=== PATIENT | female | born 1955 | race Caucasian/White ===

== ENCOUNTER 2024-03-16 08:52 | Outpatient (CLI) | payer OTHER, SELFPAY ==
--- NOTE | ~2024-03-16 | DEXA_ITS ---
Bone Density Report Name: MARIBELL BEDOLLA Age: 68 Sex: Female Ethnicity: White Date of : 1955 Indication: postmenopausal; screening for osteoporosis; height loss; cancer; hysterectomy; Referring Provider: AHMET, ESTEPHANIA Jeffrey Study: Bone densitometry was performed. Exam Date: March 16, 2024 Accession number: [id number] Bone Density: Region BMD T-score Z-score Classification AP Spine(L1-L4) 1.139 0.8 2.7 Normal Femoral Neck (Left) 0.609 -2.2 -0.6 Osteopenia Total Hip (Left) 0.737 -1.7 -0.4 Osteopenia Femoral Neck (Right) 0.543 -2.8 -1.2 Osteoporosis Total Hip (Right) 0.666 -2.3 -1.0 Osteopenia Total Hip Mean 0.701 -2.0 -0.7 Osteopenia World Health Organization criteria for BMD impression classify patients as: Normal (T-score at or above -1.0), Osteopenia (T-score between -1.0 and -2.5), or Osteoporosis (T-score at or below -2.5). 10-year Fracture Risk: FRAX not reported because: Some T-score for Spine Total or Hip Total or Femoral Neck at or below -2.5 Treated for osteoporosis Clinical Information Provided by Patient: Is being treated for osteoporosis Has used the following medications: Vitamin D, Calcium Has the following medical conditions: Cancer, Hysterectomy Patient maximum height was 66.0 Drinks caffeinated beverages Onset of menses at age 13 Number of children 2 Impression: The patient has osteoporosis, based on the Right Femoral Neck T-score. Discussion: It is important to ask patients whether they are taking their medications and to encourage continued and appropriate compliance with their osteoporosis therapies to reduce fracture risk. It is also important to review their risk factors and encourage appropriate calcium and vitamin D intakes, exercise, fall prevention and other lifestyle measures. Follow-Up: Consider a repeat BMD and Vertebral Fracture Assessment (VFA) exam in 2 years or sooner if medically necessary, to reassess this patient's status. Reported by: RICHA on 03/16/2024 9:40:00 AM. Reviewed, dictated and finalized at location A. DENIZ
== END 2024-03-16 08:53 | disposition home or self-care (01) ==
LOC: ANHIMG 08:58
PROVIDERS: PCP Nurse Practitioner; Visit Provider Nurse Practitioner
DX: M81.0 Age-related osteoporosis without current pathological fracture (principal); M85.852 Other specified disorders of bone density and structure, left thigh; M85.851 Other specified disorders of bone density and structure, right thigh
CPT/HCPCS: 77080

== ENCOUNTER 2024-03-17 12:29 | Outpatient (CLI) | payer OTHER, SELFPAY ==
--- NOTE | ~2024-03-17 | MM_ITS ---
EXAMINATION: MM diagnostic amparo LT w gabriella HISTORY: Previous benign left breast biopsy TECHNIQUE: Additional 3-D tomosynthesis images of the left breast were performed and synthetic 2-D im ages were generated. CAD analysis was submitted and interpreted. COMPARISON: 05/2024 BREAST PARENCHYMAL COMPOSITION: Not dense: There are scattered areas of fibroglandular density. FINDINGS: Stable architectural distortion and surgical change in the upper outer quadrant of the left breast posteriorly. No new masses, calcifications or architectural distortion in the left breast to suggest malignancy. IMPRESSION: 1. No mammographic evidence for malignancy in the left breast. 2. Routine yearly screening mammogram and regular clinical breast examination are recommended. BI-RADS Category 2: Benign finding(s). Reviewed, dictated and finalized at location B. IMPRESSION: 1. No mammographic evidence for malignancy in the left breast. 2. Routine yearly screening mammogram and regular clinical breast examination a re recommended. BI-RADS Category 2: Benign finding(s).
== END 2024-03-17 12:30 | disposition home or self-care (01) ==
PROVIDERS: PCP Nurse Practitioner; Visit Provider Nurse Practitioner
DX: R92.8 Other abnormal and inconclusive findings on diagnostic imaging of breast (principal)
CPT/HCPCS: 77061; 77065; G0279

== ENCOUNTER 2024-08-28 08:47 | Outpatient (CLI) | payer OTHER, SELFPAY ==
--- OUTSIDE RECORDS SUMMARY | 2024-08-28 09:08 | XMS_ITS | Referral Summary ---
Author Organization [address] Address [address] [place] [id number] Care Team Providers Care Business Office Director Name Role Phone Jhoana Christianson NP Primary Care Provider [phone] Allergies Active Allergy Reactions Criticality Noted Date Comments Sulfa (Sulfonamide Antibiotics) Vomiting Low 12/2020 Medications aspirin 81 mg enteric coated tablet TAKE 1 TABLET BY MOUTH TWICE A DAY FOR 30 DAYS FOR CLOT PREVENTION 1 Active calcitonin (MIACALCIN) 200 unit/actuation nasal spray Administer 1 spray into affected nostril(s) daily 6 Active calcium carbonate-vitami n D3 (CALTRATE 600 + D) 1500 mg (600 mg elemental) -400 units per tablet Take 1 tablet by mouth daily 9 Active cholecalciferol (VITAMIN D-3) 74427 unit capsule Take 1,000 Int'l Units by mouth daily 1 Active Trulicity 1.5 mg/0.5 mL pen injector 1 Active glipiZIDE XL (GLUCOTROL XL) 10 mg 24 hr tablet 1 Active isosorbide mononitrate ER (IMDUR) 30 mg 24 hr tablet 1 Active losartan (COZAAR) 100 mg tablet 1 Active metFORMIN (GLUCOPHAGE) 1,000 mg tablet Take 1,000 mg by mouth 2 times daily 6 Active naproxen sodium 220 mg capsule Take 220 mg by mouth 2 (two) times a day 1 Active rosuvastatin (CRESTOR) 10 mg tablet 1 Active Active Problems Problem Noted Date Diagnosed Date Obstructive sleep apnea 03/09/2021 Assessment & Plan (03/09/2021 9:55 AM CDT): Patient continue to wear CPAP at 10 cm water pressure while sleeping. Her DME is [facility]. I did inform the patient that if she would like we can complete a nocturnal polysomnogram split night protocol with no MSLT due to the weight loss. The patient states she would like to hold off at this time. PLMD (periodic limb movement disorder) Assessment & Plan (03/09/2021 9:56 AM CDT): The patient denies that her limbs are moving at night when she sleeps. Social History Tobacco Use Types Packs/Day Years Used Date Smoking Tobacco: Never Smokeless Tobacco: Never AUDIT-C Answer Date Recorded Q1: How often do you have a drink containing alc ohol? Never 03/09/2021 Average Number of Drinks Not on file 021 Q3: How often do you have si x or more drinks on one occasion? 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 Gender Identity Not on file Sexual Orientation Not on file Last Filed Vital Signs Vital Sign Reading Time Taken Comments Blood Pressure 116/70 03/09/2021 9:36 AM CDT Pulse 70 03/09/2021 9:36 AM CDT Temperature 36.6 C (97.8 F) 03/09/2021 9:36 AM CDT Respiratory Rate 18 03/09/2021 9:36 AM CDT Oxygen Saturation 99% 03/09/2021 9:36 AM CDT Inhaled Oxygen Concentration - - Weight 86.2 kg (190 lb) 03/09/2021 9:36 AM CDT Height 160 cm (5' 3 ) 03/09/2021 9:36 AM CDT Body Mass Index 33.66 03/09/2021 9:36 AM CDT Plan of Treatment Not on file Insurance [facility] PPO Care Teams Business Office Director Relationship Specialty Start Date End Date Jhoana Christianson NP [address] [place] [address] [place] [address] PCP - General 02/11/20
--- OUTSIDE RECORDS SUMMARY | 2024-08-28 09:08 | XMS_ITS | Clinical Summary ---
Author Organization [address] Address [address] [place] [id number] Care Team Providers Care Adolescent Medicine Specialist Name Role Phone Jhoana Christianson NP Primary Care Provider [phone] Allergies Active Allergy Reactions Criticality Noted Date [...] mouth daily 9 Active cholecalciferol (VITAMIN D-3) 24630 unit capsule Take 1,000 Int'l Units by [...] 1 Active rosuvastatin (CRESTOR) 10 mg tablet Active Active Problems Problem Noted Date Diagnosed [...] are moving at night when she sleeps. 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
--- OUTSIDE RECORDS SUMMARY | 2024-08-28 09:08 | XMS_ITS | Clinical Summary ---
Author Organization [facility] [place] Address [address] [place] [address] Phone Care Team Providers Care Instrument Technician Helper Name Role Phone Samara Tejada Primary Care Provider [phone] Allergies Active Allergy Reactions Criticality Noted Date Comments Adhesive Tape-Silicones Rash,Itching Medium 08/24/2015 Benzoin Compound Itching,Rash Medium 08/24/2015 Steri strips Sulfa (Sulfonamide Antibiotics) Nausea and Vomiting Low 08/16/2015 Unclassified Drug Rash,Itching Medium 08/24/2015 Steri strips Medications metFORMIN (GLUCOPHAGE) 1,000 mg tablet Take 1,000 mg by mouth 2 times daily. 1 Active losartan (COZAAR) 100 mg tablet Take 100 mg by mouth daily. 1 Active glipiZIDE (GLUCOTROL XL) 10 mg Extended Release 24 hour tablet Take 10 mg by mouth daily. 1 Active dulaglutide (Trulicity) 1.5 mg/0.5 mL injection Inject 1.5 mg by subcutaneous injection. 1 Active calcitonin, Parsons, (FORTICAL) 200 unit/actuation Moore, Non-Aerosol Administer 1 Moore in each nostril daily. 1 Active rosuvastatin (CRESTOR) 10 mg tablet Take 10 mg by mouth. 1 Active naproxen sodium (ALEVE) 220 mg Capsule Take 220 mg by mouth. 1 Active isosorbide mononitrate (IMDUR) 30 mg Extended Release 24 hour tablet Take 15 mg by mouth daily. 1 Active calcium carbonate + vitamin D (CALTRATE+D) 600 mg-10 mcg (400 unit) Tablet Take 1 Tablet by mouth daily. 9 Active aspirin (ECOTRIN EC) 81 mg Tablet, Delayed Release (E.C.) Take 81 mg by mouth daily. 1 Active albuterol sulfate 90 mcg/Actuation inhaler Take 2 Puffs by inhalation every 6 hours as needed. 2 Active Active Problems Patient Care Coordination No te Formatting of this note migh t be different from the original. 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 Rose Cerrato Surgeon: Dr. Roxanne Rubio Radiation oncologist: Dr. Yissel Ricardo Primary care physician: Dr. 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 TNM: Tmi N0 M0, stage I Stage: 0 [] I [x] II [] III [] IV ER: Negative PA: Negative [id number]: Positive Oncotype results if performed: Surgery: [x] Yes [] No Surgery date: 08/23 and 09/08/15 Surgical procedures/location/findings: 08/23 left lumpectomy. 09/08/15 left axillary sentinel lymph node biopsy. Lymph nodes removed: [x] Yes, 0/4 [] No Systemic therapy (chemotherapy): [] Yes [x] No Names of therapy used: Number of cycles and end date: Clinical trial: [] Yes [x] [place] of trial: Drugs given and date completed: Echo/Muga done prior to treatment: [] Yes [x] No If yes, Ejection fraction: Radiation: [x] Yes [] No Body area treated: Left breast. Patient received 5040 cGy in 28 fractions to the left breast through medial and lateral portal arrangements utilizing 6mv photons and forward planning IMRT technique. A boost was then delivered to the left surgical incision at 1400 cy in 7 fractions utilizing 15mv photons. End date: 10/11/15-11/18/15. Persistent symptoms or side effects at completion of treatment: [] Yes (enter types): [x] No Need for ongoing (adjuvant) treatment for cancer: Yes [x] No[] Additional treatment name: Tamoxifen Plan duration: 5 years. Patient started tamoxifen but stopped it due to intolerance. Patient to just be followed closely. She will follow with Dr Rubio her surgeon. Possible side effects: Myalgias [] Arthralgias [] Hot flashes/night sweats [x] Increased bone loss [] vaginal dryness [] slight increased risk of DVT [x] Slight increased risk of uterine cancer [x] FAMILIAL CANCER RISK ASSESSMENT Genetic/hereditary risk factors or predisposing conditions: none Genetic counseling: [] Yes [x] No Genetic testing results: SCHEDULE OF CLINIC VISITS,CANCER SURVEILLANCE, AND OTHER RECOMMENDED RELATED TESTS (Coordinating Provider,who,what, when, and how often) Coordinating provider MEDICAL ONCOLOGIST every 3-6 mos for the first 3 years and then Every 6-12 mos years 4 and 5. Then yearly. *Physical exam/lab work every 3-6 months the first 3 years and then every 6 months year 09/05 and then yearly. If no radiation therapy, mammogram yearly, if high risk consider alternating mammograms/breast MRI every 6 months. A baseline bone density study should be performed on all postmenopausal women prior to starting Arimidex/Femara/or Aromasin. It should be repeated every 1-to 2 years as directed by your physician. Other testing as indicated. RADIATION ONCOLOGIST 4-6 weeks after treatment then every 3-6 mos for the first 3 years and then every 6-12 mos for year 4 and 5. *Physical exam and other tests as indicated on each visit SURGEON every 6 mos for the first year and then yearly. *Physical exam and other tests as indicated on each visit PRIMARY CARE PHYSICIAN continue your yearly visit *Physical exam and other tests as indicated on each visit TAILORING TEACHER continue your yearly visit. If you are on tamoxifen you have a greater chance of developing uterine cancer. You should report any abnormal vaginal bleeding to your doctor. *Physical exam and other tests (Pap test) as indicated on each visit. Please continue to see your primary care physician/TAILORING TEACHER for all general health care recommended for a female your age. Possible late and/or half-way effects that someone with this type of cancer and treatment may experience: [] neuropathy [x] lymphedema [] Fatigue [] osteoporosis [] Menopausal symptoms [x] lung disease [x] breast pain [] Sexual dysfunction [x] heart disease [] leukemia Cancer survivors may experience issues with the areas listed below. If you have any concerns in these or other areas please speak with your doctors or nurses to find out how you can get help with them. [] Emotional and mental health [] Physical functioning [] Memory or concentration loss [] Fatigue [] Insurance issues [] Parenting [] Spiritual issues [] Weight changes [] School/work [] Fertility [] Stopping smoking [] Financial advice or assistance [] Sexual functioning [] Other A number of lifestyle/behaviors can affect one's ongoing health, including the risk for the cancer coming back or developing another cancer. Discuss these recommendations with your doctor and nurses. [x] Tobacco use/cessation [x] Alcohol use [x] Weight management (loss/gain) [x] Diet [x] Calcium and vitamin D [x] Regular daily weight bearing exercise [x] Sunscreen use [x] Vaccines [x] Lung cancer screening [x] Routine dental care [x] Breast cancer screening [x] Breast self exam [x] Well woman exam [x] Colonoscopy [x] Monitoring of blood pressure, cholesterol, and blood glucose CALL YOUR DOCTOR RECOMMENDATIONS For anything that represents a brand-new symptom, a persistent symptom, or anything that you are worried about that might be related to your cancer coming back. OTHER COMMENTS REFERRALS [] Star [] [facility] [] [facility] at the [facility] [x] Other (Specify): 1. Interested in weight loss and exercise. Will contact the [facility] for information on the Live [employer] program. Alternative Energy Engineer in cancer information center if interested in the future. ADDITIONAL RESOURCES Patients may have many questions and concerns after their cancer treatment ends. A list of local resources as provided below to assist you. [facility] cancer [facility]: [place] [employer] Society (ACS): www.acs.org National Cancer [place] (NCI): www.cancer.gov [place] Society of clinical oncology (ASCO): www.cancer.net K[employer]: www.Jiuxian.com.Protecode Livestrong: www.ColorPlaza Radiation therapy: www.rtanswers.org Patient signature: DIE BAKER signature: Date delivered on: 05/08/2016 60 minutes of time were spent with the patient and over 50% of time was spent in counseling, discussing her issues, chief complaints, diet, exercise, prevention, supplements, etc. or in the coordination of care. Immunizations Immunization Administration Dates Next Due Influenza Seasonal Unspecified Formulation IM Family History Medical History Relation Name Comments Diabetes Brother 2 Stroke Father Diabetes Mother Diabetes Sister 3 x2 Relation Name Status Comments Brother 1 Alive Brother 2 Father Mother Sister 1 Alive Sister 2 Alive Sister 3 Social History Tobacco Use Types Packs/Day Years Used Date Smoking Tobacco: Former Cigarettes Q uit: 09/07/1978 Smokeless Tobacco: Never Alcohol Use Standard Drinks/Week Comments No 0 (1 standard drink = 0.6 oz pur e alcohol) Comments No Sex and Gender Information Value Date Recorded Sex Assigned at Not on file Legal Sex Female 3:34 PM BACKING IN MACHINE TENDER Gender Identity Not on file Sexual Orientation Not on file Last Filed Vital Signs Vital Sign Reading Time Taken Comments Blood Pressure 120/60 06/13/2021 9:47 AM BACKING IN MACHINE TENDER Pulse 70 05/12/2019 1:50 PM BACKING IN MACHINE TENDER Temperature 36.7 C (98.1 F) 05/08/2016 11:13 AM BACKING IN MACHINE TENDER Respiratory Rate 16 05/08/2016 11:13 AM BACKING IN MACHINE TENDER Oxygen Saturation 93% 09/08/2015 11:50 AM CDT Inhaled Oxygen Concentration - - Weight 87.5 kg (193 lb) 06/13/2021 9:47 AM BACKING IN MACHINE TENDER Height 160 cm (5' 3 ) 06/13/2021 9:47 AM BACKING IN MACHINE TENDER Body Mass Index 34.19 06/13/2021 9:47 AM BACKING IN MACHINE TENDER Plan of Treatment Health Maintenance Due Date Last Done Comments DIABETES ANNUAL FOOT EXAM 12/05/1975 DIABETES ANNUAL RETINAL EXAM 12/05/1975 DIABETES MICROALBUMIN ANNUAL SCREEN 12/05/1975 LDL CHOLESTEROL ANNUAL 12/05/1975 COLORECTAL SCREENING 2002 Colorectal Cancer Screening 2002 FIT-DNA Q 3 years 2002 FIT/FOBT Q 1 year 2002 Flex Sig/CT Colonography Q 5 years 2002 PNEUMOCOCCAL VACCINE 50+ YEA RS (2 of 2 - PCV) 09/04/2018 09/04/2017 DIABETES HBA1C Q 6 MONTHS 09/27/2018 03/29/2018 BREAST CANCER SCREENING 06/13/2022 06/13/19 22, 05/17/2020, 05/12/2019, Additional history exists OSTEOPOROSIS SCREENING 2022 INFLUENZA VACCINE (#1) 2024 03/25/2015 DTAP/TDAP/TD VACCINES (2 - T d or Tdap) 01/01/2029 01/01/2019 RSV VACCINE (60+ or ) (1 - 1-dose 75+ series) 2032 ZOSTER VACCINE Completed 12/02/2017, 09/04/2017 Procedures Procedure Name Priority Date/Time Associated Diagnosis Comments MAMMO 3D LUDMILA DIAGNOSTIC BILAT W OR WO CAD Routine 06/13/2021 9:21 AM BACKING IN MACHINE TENDER 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 RECOMMENDATIONS: Bilateral annual routine mammogram. LEFT BREAST OVERALL FINAL ASSESSMENT: BI-RADS CATEGORY 2 - Benign findings. RIGHT BREAST OVERALL FINAL ASSESSMENT: BI-RADS CATEGORY 1 - Negative. DICTATION LOCATION: [facility] 06/13/2021 9:55 AM BACKING IN MACHINE TENDER BILATERAL DIAGNOSTIC DIGITAL MAMMOGRAM WITH 3D TOMOSYNTHESIS AND CAD DATE: 06/13/2021 HISTORY: Left breast cancer and left lumpectomy. Annual checkup. TECHNIQUE: Low-dose full-field digital tomosynthesis of bilateral breasts was performed with 2-D and 3-D acquisition. Computer aided diagnosis was also applied. COMPARISON: 05/17/2020 and 05/12/2019. FINDINGS: There are scattered fibroglandular tissues bilaterally. The postsurgical scar in the upper outer quadrant of the left breast is again seen, unchanged. Benign calcifications are visualized in the left breast. No new mass, malignant calcification or architectural distortion is identified. CAD was used. Procedure Note Dora Card MD - 06/13/2021 BILATERAL DIAGNOSTIC DIGITAL MAMMOGRAM WITH 3D TOMOSYNTHESIS AND CAD DATE: 06/13/2021 HISTORY: Left breast cancer and left lumpectomy. Annual checkup. TECHNIQUE: Low-dose full-field digital tomosynthesis of bilateral breasts was performed with 2-D and 3-D acquisition. Computer aided diagnosis was also applied. COMPARISON: 05/17/2020 and 05/12/2019. FINDINGS: There are scattered fibroglandular tissues bilaterally. The postsurgical scar in the upper outer quadrant of the left breast is again seen, unchanged. Benign calcifications are visualized in the left breast. No new mass, malignant calcification or architectural distortion is identified. CAD was used. IMPRESSION: No evidence of malignancy. RECOMMENDATIONS: Bilateral annual routine mammogram. LEFT BREAST OVERALL FINAL ASSESSMENT: BI-RADS CATEGORY 2 - Benign findings. RIGHT BREAST OVERALL FINAL ASSESSMENT: BI-RADS CATEGORY 1 - Negative. DICTATION LOCATION: [facility] Machado MD MAMMO ORDERABLES Final R esult from Last 3 Months or Most Recently Relevant to Health Maintenance Insurance [employer] Advance Directives For more information, please contact: [phone] * Full Code (Latest Code Status on File) Date Activated Date Inactivated Comments 09/08/2015 7:53 AM 09/08/2015 4:30 PM * Full Code Date Activated Date Inactivated Comments 09/08/2015 7:24 AM 09/08/2015 7:53 AM * Full Code Date Activated Date Inactivated Comments 08/24/2015 12:25 PM 08/24/2015 4:22 PM * Full Code Date Activated Date Inactivated Comments 08/24/2015 10:42 AM 08/24/2015 12:25 PM Care Teams Instrument Technician Helper Relationship Specialty Start Date End Date Samara Tejada DO [address] [place] [address] [place] [id number] PCP - General Family Practice 08/16/15
--- OUTSIDE RECORDS SUMMARY | 2024-08-28 09:08 | XMS_ITS | Clinical Summary ---
Author Organization [facility] Address [address] [place] [address] Care Team Providers Care Rehab Consultant Name Role Phone Terrell Samarazulema Charlton DO Primary Care Provider [phone] Roxanne Rubio MD Unavailable [phone] Source Comments [facility],non-owned Affiliates and Associated Physician Practices is amultiple site organization consisting of ambulatory clinics and hospital sitesin [place], [place], [place] and [place]. This disclosure is being madepursuant to the Care Everywhere program and may not contain all information available regarding this patient. Last updated 18.[facility] [employer] Social History Tobacco Use Types Packs/Day Years Used Date Smoking Tobacco: Never Assessed Sex and Gender Information Value Date Recorded Sex Assigned at Not on file Gender Identity Not on file Sexual Orientation Not on file Plan of Treatment Health Maintenance Due Date Last Done Comments BONE DENSITY TESTING 1957 COLOGUARD (AGES 45-75) - COL ON CA SCREENING 1957 COLON MONITORING 1957 COLONOSCOPY - COLON CA SCREENING 1957 CT COLONOGRAPHY - COLON CA SCREENING 1957 Colorectal Cancer Screening 1957 FIT - COLON CA SCREENING 1957 FLEX SIG - COLON CA SCREENING 1957 LIPID TESTING 1957 HEPATITIS C SCREENING 11/30/1975 DTAP/TDAP/TD VACCINES (1 - Tdap) 1976 PNEUMOCOCCAL VACCINE 50+ (1 of 1 - PCV) 12/05/2007 ZOSTER VACCINE (1 of 2) 12/05/2007 MAMMOGRAM 05/12/2021 05/12/2019 COVID-19 VACCINE (2023-2 5 season) 2024 INFLUENZA VACCINE (#1) 2024 03/25/2015 DEPRESSION SCREENING 06/03/2024 Respiratory Syncytial Virus (RSV) Vaccine Pt: or over 60 yrs (1 - 1-dose 75+ series) 2032 HEPATITIS B VACCINE Aged Out No longe r eligible based on patient's age to complete this topic HIB VACCINE Aged Out No longer eligi ble based on patient's age to complete this topic HPV VACCINE Aged Out No longer eligi ble based on patient's age to complete this topic MENINGOCOCCAL (Group B) VACC INE SHARED DECISION-MAKING Aged Out No longer eligibl e based on patient's age to complete this topic MENINGOCOCCAL GROUPS A/C/Y/W VACCINE Aged Out No longer eligible b ased on patient's age to complete this topic Care Teams Rehab Consultant Relationship Specialty Start Date End Date Samara Tejada DO PCP - General Family Medicine 02/26/20 Roxanne Rubio MD [address] [place] [address] Surgical Oncologist General Surgery 02/26/20
[2024-08-28 09:29] LABS: Basophils Absolute Auto 0.1 K/mm3 (0.0-0.1); Basophils Percent Auto 1.2 % (0.2-1.2); Eosinophils Absolute Auto 0.1 K/mm3 (0-0.3); Eosinophils Percent Auto 2.5 % (0-4.4); Hematocrit 45.7 % (37.0-47.0); Hemoglobin 15.3 g/dL (12.0-15.0); Immature Granulocyte Absolute 0.02 K/mm3 (0.00-0.031); Immature Granulocyte Percent A 0.4 % (0-0.5); Lymphocytes Absolute Auto 0.81 K/mm3 (0.9-3.2); Lymphocytes Percent Auto 16.8 % (18.3-44.2); Mean Corpuscular HGB Conc 33.5 g/dl (32-36); Mean Corpuscular Hemoglobin 29.1 pg (26-34); Mean Corpuscular Volume 86.9 fl (80-100); Mean Platelet Volume 10.9 fl (7.4-10.4); Monocytes Absolute Auto 0.4 K/mm3 (0.1-0.6); Monocytes Percent Auto 8.9 % (2.6-8.5); Neutrophils Absolute Auto 3.4 K/mm3 (1.3-6.7); Neutrophils Percent Auto 70.2 % (45.5-73.1); Platelet Count Result 211 k/mm3 (150-375); Red Blood Count 5.26 M/mm3 (4.2-5.4); Red Cell Distribution Width 13.3 % (11.5-14.5); White Blood Count 4.8 K/mm3 (4.5-10.0)
[2024-08-28 09:40] LABS: Alanine Aminotransferase 33 U/L (6-35); Albumin Level 4.3 g/dL (3.5-5.1); Alkaline Phosphatase 55 U/L (38-126); Anion Gap 10 mmol/L (4-12); Aspartate Amino Transferase 33 U/L (14-36); Bilirubin,Total 0.9 mg/dL (0.2-1.3); Blood Urea Nitrogen 16 mg/dL (7-17); Calcium 9.2 mg/dL (8.4-10.2); Carbon Dioxide 24 mmol/L (22-30); Chloride 103 mmol/L (98-107); Cholesterol 137 mg/dL (0-200); Estimated Glomerular Filt Rate > 60; Glucose 132 mg/dL (65-110); HDL Direct 67 mg/dL; Sodium 137 mmol/L (137-145); Triglycerides 67 mg/dL (<150)
[2024-08-28 09:51] LABS: LDL Cholesterol Direct 47 mg/dL
[2024-08-28 09:59] LABS: Vitamin D 25 Hydroxy 57.4 ng/mL
[2024-08-28 10:02] LABS: Hemoglobin A1C 8.2 % (<5.7)
== END 2024-08-28 08:48 | disposition home or self-care (01) ==
LOC: ANHLAB 08:51
PROVIDERS: PCP Nurse Practitioner; Visit Provider Nurse Practitioner
DX: E11.21 Type 2 diabetes mellitus with diabetic nephropathy (principal); E55.9 Vitamin D deficiency, unspecified; E78.2 Mixed hyperlipidemia; I10 Essential (primary) hypertension
CPT/HCPCS: 36415; 80053; 80061; 82306; 83036; 84443; 85025

== ENCOUNTER 2024-11-26 08:46 | Outpatient (CLI) | payer OTHER, SELFPAY ==
[2024-11-26 10:36] LABS: Hemoglobin A1C 7.7 % (<5.7)
== END 2024-11-26 08:47 | disposition home or self-care (01) ==
PROVIDERS: PCP Nurse Practitioner; Visit Provider Nurse Practitioner
DX: E11.65 Type 2 diabetes mellitus with hyperglycemia (principal)
CPT/HCPCS: 36415; 83036

== ENCOUNTER 2024-11-28 09:42 | Emergency (ER) | payer OTHER, SELFPAY ==
[2024-11-28 09:52] VITALS: BP 139/70; PULSE 74; RESP 16; TEMP 36.3; O2SAT 99
--- NOTE | 2024-11-28 12:43 | ED.GENADULT ---
HPI - General Adult General Chief complaint: Skin/Abscess/Foreign Body Stated complaint: Possible Wound on Back Time Seen by Provider: 11/28/24 12:05 History of Present Illness HPI narrative: 68-year-old female presenting with a painful bump on her back. Patient has a history of clots patient says. No other symptoms. Related Data Allergies Allergy/AdvReac Type Severity Reaction Status Date / Time Sulfa (Sulfonamide AdvReac Nausea and Verified 11/28/24 09:55 Antibiotics) Vomiting Exam Narrative: APPEARANCE: No apparent distress. Head: atraumatic. EYES: EOMI, NOSE: Atraumatic NECK: Trachea midline RESPIRATORY: No increased rate of breathing CARDIOVASCULAR: RRR, ABDOMINAL: Non-distended MUSCULOSKELETAl: No obvious deformities NEURO: Alert. Moving 4/4 extremities SKIN:: Sebaceous cyst over the upper middle back. No surrounding cellulitis. Tender to palpation. Fluctuant. PSYCHIATRIC: Normal affect Course Vital Signs Vital signs: Vital Signs Temperature 97.4 F L 11/28/24 09:52 Pulse Rate 74 11/28/24 09:52 Respiratory Rate 16 11/28/24 09:52 Blood Pressure 139/70 11/28/24 09:52 Pulse Oximetry 99 11/28/24 09:52 Temperature 97.4 F L 11/28/24 09:52 Pulse Rate 74 11/28/24 09:52 Respiratory Rate 16 11/28/24 09:52 Blood Pressure 139/70 11/28/24 09:52 Pulse Oximetry 99 11/28/24 09:52 Procedures Abscess I/D back: Date of Incision: 11/28/24 Local Anesthetic: bupivacaine 0.25% Amount of anesthesia used (mL): 5 Technique: incised with #11 blade Amount of fluid expressed (mL): 6 Irrigation: Yes Packing used?: none I&D Results: Pus and Blood Medical Decision Making MDM Narrative Medical decision making narrative: -Course: 68-year-old female presenting with a painful sebaceous cyst on her back. Is incised and drained with return of sebaceous material, pus and some blood. No surrounding cellulitis. Antibiotic sinus started. Patient discharged primary care follow-up. Given return precautions Vital Signs Vital Signs: Vital Signs Temperature 97.4 F L 11/28/24 09:52 Pulse Rate 74 11/28/24 09:52 Respiratory Rate 16 11/28/24 09:52 Blood Pressure 139/70 11/28/24 09:52 Pulse Oximetry 99 11/28/24 09:52 Temperature 97.4 F L 11/28/24 09:52 Pulse Rate 74 11/28/24 09:52 Respiratory Rate 16 11/28/24 09:52 Blood Pressure 139/70 11/28/24 09:52 Pulse Oximetry 99 11/28/24 09:52 Discharge Plan Discharge Clinical Impression: Abscess of skin or subcutaneous tissue Patient Disposition: Home Condition: Stable Instructions: Antibiotic Form, Abscess (ED) Additional Instructions: Please follow-up with your primary care physician. Return if you develop fevers, redness or increased pain. Patient Language: Kinyarwanda Follow-up/Referrals: Sammy,LAVELLE [place] [Primary Care Provider] -
[2024-11-28 13:05] VITALS: BP 135/78; PULSE 80; RESP 20; TEMP 36.6; O2SAT 98
== END 2024-11-28 13:06 | disposition home or self-care (01) ==
PROVIDERS: Emergency Provider Emergency Medicine; PCP Nurse Practitioner
DX: L02.212 Cutaneous abscess of back [any part, except buttock and flank] (principal)
CPT/HCPCS: 10060; 99282

== ENCOUNTER 2024-12-18 00:28 | Day surgery (SDC) | payer OTHER, SELFPAY ==
[2024-12-07 14:01] VITALS: BMI 29.0
--- OUTSIDE RECORDS SUMMARY | 2024-12-18 00:32 | XMS_ITS | Encounter Summary ---
Author Organization [facility] Address [address] [place] [address] Care Team Providers Care Material Mixer Name Role Phone Jhoana Christianson YOSELIN Primary Care Provider Pato Tamez MD Unavailable [phone] Nemesio Javier MD Unavailable [phone] Encounter Details Date Type Department Care Team (Latest Contact Info) Description 12/17/2024 Travel Social History Tobacco Use Types Packs/Day Years Used Date Smoking Tobacco: Never Smokeless Tobacco: Never Comments:Provider to diet counselor Alcohol Use Standard Drinks/Week Comments No 0 (1 standard drink = 0.6 oz pur e alcohol) PHQ-2 Answer Date Recorded Patient Health Questionnaire-2 Score 0 08/26/2024 Comments No Sex and Gender Information Value Date Recorded Sex Assigned at Female 08/26/2024 9:42 AM CDT Legal Sex Female 7:26 PM CDT Gender Identity Not on file Sexual Orientation Not on file Occupation Industry Job Start Date Job End Date Housekeeping Not on file Not on file Not on file documented as of this encounter Functional Status * RETIRED Are you deaf or do you have serious difficulty hearing Answer Date of Assessment Author Status No 09/20/2020 2:25 PM CDT Activ e * RETIRED Are you blind or do you have serious difficulty seeing, even when wearing glasses? Answer Date of Assessment Author Status No 09/20/2020 2:25 PM CDT Activ e * Do you have serious difficulty walking or climbing stairs? Answer Date of Assessment Author Status Yes 09/20/2020 2:25 PM CDT Ginny Jara RN Active * Do you have difficulty dressing or bathing? Answer Date of Assessment Author Status No 09/20/2020 2:25 PM CDT Ginny Jara RN Active * Because of a physical, mental, or emotional condition, do you have difficulty doing errands alone such as visiting a doctor's office or shopping? Answer Date of Assessment Author Status No 09/20/2020 2:25 PM CDT Ginny Jara RN Active documented as of this encounter Mental Status * Because of a physical, mental, or emotional condition, do you have serious difficulty concentrating, remembering, or making decisions? Answer Entry Date Author Status No 09/20/2020 2:25 PM CDT Ginny Jara RN Active documented in this encounter Plan of Treatment Upcoming Encounters Date Type Department Care Team (Late st Contact Info) Description 02/25/2025 8:40 AM CDT Office Visit [facility] [address] [place] [address] Jhoana Christianson FNP [address] [place] [address] 12/23/2025 9:00 AM CDT [facility] [address] [id number] Sobeida Camp, TONG [address] [address] documented as of this encounter Goals Goal Patient Goal Type Associated Problems Recent Progress Patient-Stated? 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
--- OUTSIDE RECORDS SUMMARY | 2024-12-18 00:32 | XMS_ITS | Referral Summary ---
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
--- OUTSIDE RECORDS SUMMARY | 2024-12-18 00:32 | XMS_ITS | Clinical Summary ---
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
--- OUTSIDE RECORDS SUMMARY | 2024-12-18 00:32 | XMS_ITS | Continuity of Care Document ---
Author Organization [employer] Address [address] [facility] [address] [place] [address] Phone Care Team Providers Care Gaming Commissioner Name Role Phone Zack WANG, Caterina ROGERS Unavailable Unavail able Procedures Procedure Date Therapeutic Activities Manual Therapy Therapeutic Exercise Therapeutic Activities Manual Therapy Therapeutic Activities Manual Therapy Neuromuscular Re-Ed Therapeutic Activities Manual Therapy Therapeutic Exercise Therapeutic Activities Manual Therapy Neuromuscular Re-Ed Therapeutic Activities Neuromuscular Re-Ed Manual Therapy Hot or Cold Pack Therapeutic Activities Neuromuscular Re-Ed Manual Therapy Therapeutic Activities Mechanical Traction Neuromuscular Re-Ed Manual Therapy Therapeutic Exercise Progress Note Manual Therapy Hot or Cold Pack Manual Therapy Neuromuscular Re-Ed Therapeutic Activities Hot or Cold Pack Manual Therapy Therapeutic Activities Manual Therapy Therapeutic Activities Therapeutic Activities Manual Therapy Neuromuscular Re-Ed Manual Therapy Neuromuscular Re-Ed Therapeutic Activities Neuromuscular Re-Ed Manual Therapy Therapeutic Activities Manual Therapy Manual Therapy Neuromuscular Re-Ed Therapeutic Activities Therapeutic Activities Neuromuscular Re-Ed Manual Therapy Therapeutic Activities Progress Note Therapeutic Exercise Manual Therapy Neuromuscular Re-Ed Therapeutic Activities Manual Therapy Neuromuscular Re-Ed Therapeutic Activities Neuromuscular Re-Ed Manual Therapy Therapeutic Activities Manual Therapy Neuromuscular Re-Ed Therapeutic Activities Neuromuscular Re-Ed Manual Therapy Hot or Cold Pack Therapeutic Activities Neuromuscular Re-Ed Manual Therapy Therapeutic Activities Neuromuscular Re-Ed Manual Therapy Therapeutic Activities Hot or Cold Pack Manual Therapy PT Evaluation Moderate Complexity Therapeutic Activities Neuromuscular Re-Ed Mechanical Traction Manual Therapy Progress Note Manual Therapy Therapeutic Exercise Neuromuscular Re-Ed Manual Therapy Therapeutic Exercise Therapeutic Activities Neuromuscular Re-Ed Therapeutic Exercise Manual Therapy Therapeutic Exercise Manual Therapy Neuromuscular Re-Ed Therapeutic Activities Therapeutic Exercise Manual Therapy Progress Note Therapeutic Activities Therapeutic Exercise Manual Therapy Neuromuscular Re-Ed Therapeutic Exercise Manual Therapy Therapeutic Activities Neuromuscular Re-Ed Therapeutic Exercise Manual Therapy Therapeutic Activities Therapeutic Exercise Neuromuscular Re-Ed Manual Therapy Neuromuscular Re-Ed Therapeutic Exercise Manual Therapy PT Evaluation Low Complexity Therapeutic Activities Therapeutic Exercise Manual Therapy Neuromuscular Re-Ed Therapeutic Activities Manual Therapy Therapeutic Exercise Therapeutic Activities Therapeutic Exercise Neuromuscular Re-Ed Manual Therapy Neuromuscular Re-Ed Manual Therapy Therapeutic Activities Therapeutic Exercise Manual Therapy Therapeutic Exercise Therapeutic Activities PT Evaluation Moderate Complexity Neuromuscular Re-Ed Therapeutic Activities Therapeutic Exercise Neuromuscular Re-Ed Therapeutic Activities Therapeutic Exercise Neuromuscular Re-Ed Therapeutic Activities Therapeutic Exercise Theratube/band Neuromuscular Re-Ed Manual Therapy Therapeutic Activities Neuromuscular Re-Ed Manual Therapy Neuromuscular Re-Ed Progress Note Therapeutic Exercise Therapeutic Activities Therapeutic Activities Therapeutic Exercise Therapeutic Exercise Manual Therapy Manual Therapy Neuromuscular Re-Ed Neuromuscular Re-Ed Therapeutic Exercise Therapeutic Activities Therapeutic Exercise Manual Therapy Neuromuscular Re-Ed Therapeutic Exercise Therapeutic Activities Neuromuscular Re-Ed Therapeutic Activities Electrical Stimulation Manual Therapy Therapeutic Exercise Therapeutic Activities Manual Therapy Hot or Cold Pack Electrical Stimulation Hot or Cold Pack Therapeutic Activities Manual Therapy Neuromuscular Re-Ed Therapeutic Activities Manual Therapy Therapeutic Exercise Hot or Cold Pack Progress Note Therapeutic Activities Manual Therapy Hot or Cold Pack Therapeutic Exercise Neuromuscular Re-Ed Therapeutic Activities Neuromuscular Re-Ed Therapeutic Exercise Manual Therapy Hot or Cold Pack Manual Therapy Therapeutic Activities Manual Therapy Therapeutic Exercise Hot or Cold Pack Therapeutic Exercise Manual Therapy Therapeutic Activities Neuromuscular Re-Ed Therapeutic Exercise Therapeutic Activities Neuromuscular Re-Ed Hot or Cold Pack Therapeutic Activities Manual Therapy Hot or Cold Pack Neuromuscular Re-Ed Therapeutic Exercise Therapeutic Activities Manual Therapy Neuromuscular Re-Ed Therapeutic Exercise Hot or Cold Pack PT Evaluation High Complexity Therapeutic Exercise Hot or Cold Pack Therapeutic Activities Therapeutic Activities Therapeutic Exercise Manual Therapy Neuromuscular Re-Ed Therapeutic Exercise Manual Therapy Therapeutic Activities Neuromuscular Re-Ed Manual Therapy Therapeutic Activities Therapeutic Exercise Manual Therapy Therapeutic Activities Neuromuscular Re-Ed Therapeutic Exercise Manual Therapy Therapeutic Activities Manual Therapy Neuromuscular Re-Ed Therapeutic Activities Neuromuscular Re-Ed Manual Therapy Neuromuscular Re-Ed Therapeutic Exercise Manual Therapy Therapeutic Activities Neuromuscular Re-Ed Therapeutic Exercise Manual Therapy Therapeutic Activities Neuromuscular Re-Ed Therapeutic Exercise Manual Therapy Progress Note Therapeutic Activities Therapeutic Exercise Neuromuscular Re-Ed Manual Therapy Neuromuscular Re-Ed Therapeutic Exercise Manual Therapy Therapeutic Activities Therapeutic Exercise Neuromuscular Re-Ed Manual Therapy Therapeutic Activities Neuromuscular Re-Ed Therapeutic Exercise Manual Therapy Therapeutic Activities Manual Therapy Therapeutic Exercise Therapeutic Activities Neuromuscular Re-Ed Therapeutic Exercise Therapeutic Activities Therapeutic Exercise Manual Therapy Therapeutic Activities Manual Therapy Therapeutic Activities Neuromuscular Re-Ed Manual Therapy Therapeutic Exercise PT Evaluation Moderate Complexity Therapeutic Activities Therapeutic Exercise Manual Therapy Therapeutic Activities Therapeutic Exercise Manual Therapy Hot or Cold Pack Therapeutic Exercise Manual Therapy Hot or Cold Pack Therapeutic Activities Therapeutic Exercise Manual Therapy Therapeutic Activities Therapeutic Exercise Hot or Cold Pack Manual Therapy Therapeutic Activities Therapeutic Exercise Neuromuscular Re-Ed Manual Therapy Hot or Cold Pack Therapeutic Activities Manual Therapy Hot or Cold Pack Progress Note Therapeutic Activities Manual Therapy Hot or Cold Pack Therapeutic Exercise Therapeutic Activities Manual Therapy Hot or Cold Pack Therapeutic Exercise Therapeutic Activities Manual Therapy Hot or Cold Pack Therapeutic Exercise Manual Therapy Therapeutic Activities Hot or Cold Pack Therapeutic Exercise Manual Therapy Therapeutic Activities Hot or Cold Pack Therapeutic Exercise Therapeutic Activities Manual Therapy Hot or Cold Pack Therapeutic Exercise Therapeutic Activities Manual Therapy Hot or Cold Pack Therapeutic Exercise Therapeutic Activities Manual Therapy Hot or Cold Pack Progress Note Therapeutic Exercise Therapeutic Activities Manual Therapy Hot or Cold Pack Therapeutic Exercise Manual Therapy Hot or Cold Pack Therapeutic Exercise Neuromuscular Re-Ed Manual Therapy Hot or Cold Pack Therapeutic Exercise Neuromuscular Re-Ed Hot or Cold Pack Therapeutic Exercise Neuromuscular Re-Ed Manual Therapy Hot or Cold Pack Therapeutic Exercise Therapeutic Activities Neuromuscular Re-Ed Manual Therapy Hot or Cold Pack Therapeutic Exercise Therapeutic Activities Neuromuscular Re-Ed Manual Therapy Ultrasound Therapeutic Exercise Manual Therapy Neuromuscular Re-Ed Hot or Cold Pack OT Evaluation Moderate Complexity Therapeutic Exercise Neuromuscular Re-Ed Advance Directives Directive Yes / No Effective Date File Name No Information Encounters Encounter Description Practice Location Reason(s) For Visit Diagnoses Date Provider Providers Copied on Encounter [employer] [place], [id number], tel:[phone] [facility] No Information 2 Zack Diggs. . [employer] [place], [id number], tel:[phone] [facility] No Information 2 Zack Diggs. . [employer] [place], [id number], tel:[phone] [place] [facility] No Information 2 Dixon Caterina. . [employer] [facility], [address], [place], [place], [id number], tel:[phone] [place] No Information 2 Dixon Caterina. . [employer] [facility], [address], [place], [place], [id number], tel:[phone] [facility] No Information 2 Dixon Caterina. . [employer] [facility], [address], [place], [place], [id number], [place] tel:[phone] [facility] No Information 2 Weinhardt Marisol. . [employer] [facility], [address], [place], [place], [id number], tel:[phone] [place] No Information 2 Weinhardt Marisol. . [employer] [facility], [address], [place], [place], [id number], [place] tel:[phone] [facility] No Information 2 Marcio Najma. . [employer] [facility], [address], [place], [place], [id number], [place] tel:[phone] [facility] No Information 2 Marcio Najma. . [employer] [facility], [address], [place], [place], [id number], [place] tel:[phone] [facility] No Information 2 Weinhardt Marisol. . [employer] [facility], [address], [place], [place], [id number], [place] tel:[phone] [place] No Information 2 Dixon Caterina. . [employer] [facility], [address], [place], [place], [id number], [place] tel:[phone] [facility] No Information 2 Dixon Caterina. . [employer] [facility], [address], [place], [place], [id number], tel:[phone] [facility] No Information 0- 2 Dixon Caterina. . [employer] [facility], [address], [place], [place], [id number], tel:[phone] [place] [facility] No Information 8 2 Dixon Caterina. . [employer] [facility], [address], [place], [place], [id number], tel:[phone] [place] No Information 2 Dixon Caterina. . [employer], [address], [place], [place], [id number], tel:[phone] [place] No Information 2 Dixon Caterina. . [employer] [facility], [address], [place], [id number], tel:[phone] [place] [facility] No Information 2 Dixon Caterina. . [employer] [facility], [address], [place], [place], [address], tel:[phone] [place] [facility] No Information 2 Dixon Caterina. . [employer] [facility], [address], [place], [place], [id number], tel:[phone] [facility] No Information 2 Dixon Caterina. . [employer] [facility], [address], [place], [place], [id number], [place] tel:[phone] [facility] No Information 0 2 Dixon Caterina. . [employer] [facility], [address], [place], [place], [id number], [place] tel:[phone] [place] No Information 2 Dixon Caterina. . [employer], [address], [place], [place], [id number], [place] tel:[phone] [facility] No Information Nov-2 - 2 Dixon Caterina. . [employer], [address] [address], [place], [place], [id number], tel:[phone] [facility] No Information Albert-2 2- 2 Marcio Najma. . [employer], [address] [address], [place], [place], [address], tel:[phone] [facility] No Information Albert-2 0- 2 Marcio Najma. . [employer], [address] [address], [place], [place], [id number], [place] tel:[phone] [facility] No Information Nov- 2 Dixon Caterina. . [employer], [address] [address], [place], [place], [id number], tel:[phone] [facility] No Information 2 Marcio Najma. . [employer], [address] [address], [place], [place], [id number], tel:[phone] [facility] No Information - 2 Marcio Najma. . [employer], [address], [id number], tel:[phone] [facility] No Information Dec-2 - 1 Dixon Caterina. . Referring Provider: Cande Mccullough [address] [address], [place], [address]. tel:[phone] [employer] [facility], [address], [id number], tel:[phone] [facility] No Information Dec-2 0-202 1 Dixon Caterina. . Referring Provider: Cande Mccullough [address] [address], [place], [address]. tel:[phone] [employer], [address], [id number], tel:[phone] [facility] No Information Dec-1 - 1 Dixon Caterina. . Referring Provider: Cande Mccullough [address] [address], [place], [address]. tel:[phone], [address], [id number], tel:[phone] [facility] No Information Dec-0 9- 1 Dixon Caterina. . Referring Provider: Cande Mccullough [address] [address], [place], [address]. tel:[phone], [address], [id number], [place] tel:[phone] [facility] No Information Dec-0 7- 1 Dixon Caterina. . Referring Provider: Cande Mccullough E [address], [address]. tel:[phone], [address], [id number], tel:[phone] [facility] [employer] No Information Nov-3 0- 1 Dixon Caterina. . Referring Provider: Cande Mccullough E [address], [address]. tel:[phone], [address], [id number], tel:[phone] [facility] [employer] No Information Nov-2 4- 1 Dixon Caterina. . Referring Provider: Cande Mccullough E [address], [address]. tel:[phone], [address], [id number], [place] tel:[phone] [facility] No Information Nov-2 2- 1 Weinhardt Marisol. . Referring Provider: Cande Mccullough E [address], [address]. tel:[phone], [address], [id number], [place] tel:[phone] [facility] No Information - 1 Dixon Caterina. . Referring Provider: Cande Mccullough [address] [address], [place], [address]. tel:[phone], [address], [id number], tel:[phone] [facility] No Information 1 Dixon Caterina. . Referring Provider: Cande Mccullough [address] [address], [place], [address]. tel:[phone], [address], [id number], [place] tel:[phone] [facility] No Information - 1 Dixon Caterina. . Referring Provider: Cande Mccullough [address] [address], [place], [address]. tel:[phone], [address], [id number], [place] tel:[phone] [facility] No Information Sep-3 0- 1 Dixon Caterina. . Referring Provider: Cande Kraft E [address], [address]. tel:[phone], [address], [id number], tel:[phone] [facility] No Information Sep-2 8 1 Dixon Caterina. . Referring Provider: Cande Kraft E [address], [address]. tel:[phone], [address], [id number], [place] tel:[phone] [facility] No Information Sep-2 3- 1 Dixon Caterina. . Referring Provider: Cande Kraft E [address], [place], [address]. tel:[phone], [address], [id number], tel:[phone] [facility] No Information Sep-2 1- 1 Dixon Caterina. . Referring Provider: Oral Del Toro, [address] [facility] [facility] [address] [facility], [place], [address]. tel:[phone], [address] [place] [address], [id number], tel:[phone] [facility] No Information Sep-1 6- 1 Dixon Caterina. . Referring Provider: Oral Del Toro, [address] [facility] [facility] [address] [facility], [place], [address]. tel:[phone], [address] [place] [address], [id number], tel:[phone] [facility] No Information Sep-0 9- 1 Dixon Caterina. . Referring Provider: Alton Che, [address], [place], [address]. tel:[phone], [address] [place] [address], [id number], tel:[phone] [facility] No Information Sep-0 7- 1 Dixon Caterina. . Referring Provider: Alton Che, [address], [place], [address]. tel:[phone] [employer] [address] [place] [address], [id number], tel:[phone] [facility] No Information Sep-0 2-202 1 Dixon Caterina. . Referring Provider: Alton Che, [address], [place], [address]. tel:[phone] [employer], [facility][note 3] [address], [id number], tel:[phone] [facility] No Information Sep-0 1-202 1 Dixon Caterina. . Referring Provider: Alton Che, [address], [place], [address]. tel:[phone], [address], [id number], tel:[phone] [facility] No Information 1 Dixon Caterina. . Referring Provider: Alton Che, [address] [address], [place], [address]. tel:[phone], [address], [id number], [place] tel:[phone] [facility] No Information 1 Fany Damon. . Referring Provider: Alton Che, [address] [address], [place], [address]. tel:[phone], [address], [id number], tel:[phone] [facility] No Information 1 Dixon Caterina. . Referring Provider: Alton Che, [address] [address], [place], [address]. tel:[phone] [employer], [address], [id number], tel:[phone] [facility] No Information 1 Dixon Caterina. . Referring Provider: Alton Che, [address] [address], [place], [address]. tel:[phone] [employer], [address], [id number], [place] tel:[phone] [facility] No Information 1 Dixon Caterina. . Referring Provider: Alton Che, [address], [place], [address]. tel:[phone], [address], [id number], [place] tel:[phone] [facility] No Information 1 Dixonnasreen Diggs. . Referring Provider: Alton Che, [address], [place], [address]. tel:[phone] [facility], [address], [id number], tel:[phone] [facility] No Information 1 Dixonnasreen Diggs. . Referring Provider: Alton Che, [address] [facility] [address], [place], [address]. tel:[phone] [facility], [address], [id number], tel:[phone] [facility] No Information 1 Gannon Malia. . Referring Provider: Alton Che, [address] [address], [place], [address]. tel:[phone], [address], [id number], tel:[phone] [facility] No Information 0 1 Gannon Malia. . Referring Provider: Alton Che, [address] [place] [address], [place], [address]. tel:[phone] [address], [id number], tel:[phone] [facility] No Information 0 1 Gannon Malia. . Referring Provider: Alton Che, [address] [facility] [address], [place], [address]. tel:[phone], [address], [id number], tel:[phone] [facility] No Information 1 Gannon Malia. . Referring Provider: Alton Che, [address] [facility] [address], [place], [address]. tel:[phone], [address], [id number], [place] tel:[phone] [facility] No Information 1 Gannon Malia. . Referring Provider: Alton Che, [address], [place], [address]. tel:[phone], [address], [id number], [place] tel:[phone] [facility] No Information 1 Gannon Malia. . Referring Provider: Alton Che, [address] [facility] [address], [place], [address]. tel:[phone], [address], [id number], tel:[phone] [facility] No Information 1 Gannon Malia. . Referring Provider: Alton Che, [address], [place], [address]. tel:[phone] [employer], [address], [id number], [place] tel:[phone] [facility] No Information 1 Gannon Malia. . Referring Provider: Alton Che, [address] [facility] [address], [place], [address]. tel:[phone], [address] [facility] [address], [place], [id number], [place] tel:[phone] [facility] No Information 1 Gannon Malia. . Referring Provider: Alton Che, [address], [place], [address]. tel:[phone] [employer], [address] [facility] [address], [place], [id number], [place] tel:[phone] [facility] No Information 1 Zack Diggs. . Referring Provider: Alton Marybabar Che, [address] [facility] [address], [place], [address]. tel:[phone] [employer] [facility], [address], [id number], tel:[phone] [facility] No Information 1 Gannon Malia. . Referring Provider: Alton Che, [address], [place], [address]. tel:[phone] [employer] [facility], [address], [id number], tel:[phone] [facility] No Information 1 Gannon Malia. . Referring Provider: Alton Che, [address] [address], [place], [address]. tel:[phone], [address], [id number], tel:[phone] [facility] No Information 1 Gannon Malia. . Referring Provider: Alton Che, [address], [place], [address]. tel:[phone] [address], [id number], tel:[phone] [facility] No Information 1 Gannon Malia. . Referring Provider: Alton Che, [address] [facility] [address], [place], [address]. tel:[phone], [address], [id number], tel:[phone] [facility] [place] No Information 9 Cindy Emerson. . Referring Provider: Alton Che, [address] [facility] [address], [place], [address]. tel:[phone], [address], [id number], [place] tel:[phone] [facility] Information 3 9 [place] Idania. . Referring Provider: Alton Che, [address] [facility] [address], [place], [address]. tel:[phone], [address], [id number], [place] tel:[phone] [facility] Information 9 [place] Idania. . Referring Provider: Alton Che, [address] [facility] [address], [place], [address]. tel:[phone], [address], [id number], [place] tel:[phone] [facility] Information [phone] 9 [place] Idania. . Referring Provider: Alton Che, [address], [place], [address]. tel:[phone], [address], [id number], [place] tel:[phone] [facility] Information 0 2-201 9 [place]. . Referring Provider: Alton Che, [address], [place], [address]. tel:[phone], [address], [id number], [place] tel:[phone] [facility] Interface21 Information 9-201 9 [place]. . Referring Provider: Alton Che, [address], [place], [address]. tel:[phone], [address], [id number], [place] tel:[phone] [facility] Information 2 0-201 9 [place]. . Referring Provider: Alton Che, [address] [facility] [address], [place], [address]. tel:[phone], [address], [id number], tel:[phone] [facility] Information 8-201 9 [place]. . Referring Provider: Alton Che, [address] [facility] [address], [place], [address]. tel:[phone], [address], [id number], tel:[phone] [facility] Information 3-201 9 [place]. . Referring Provider: Alton Che, [address] [address], [place], [address]. tel:[phone], [address], [id number], tel:[phone] [facility] Information 2-201 9 [place]. . Referring Provider: Alton Che, [address], [place], [address]. tel:[phone], [address], [id number], [place] tel:[phone] [facility] Information 0 8-201 9 [place]. . Referring Provider: Alton Che, [address] [place] [address], [place], [address]. tel:[phone], [address], [id number], tel:[phone] [facility] Information 0 4-201 9 [place]. . Referring Provider: Alton Che, [address], [place], [address]. tel:[phone], [facility][note 3] [address], [id number], [place] tel:[phone] [facility] [place] No Information 1-201 9 [place]. . Referring Provider: Alton Che, [address], [place], [address]. tel:[phone], [address], [id number], [place] tel:[phone] [facility] No Information 0 9 [place]. . Referring Provider: Alton Che, [address], [place], [address]. tel:[phone], [address], [id number], [place] tel:[phone] [facility] No Information 9 [place]. . Referring Provider: Alton Che, [address] [facility] [address], [place], [address]. tel:[phone], [address], [id number], tel:[phone] [facility] No Information 9 [place]. . Referring Provider: Alton Che, [address], [place], [address]. tel:[phone], [address], [id number], [place] tel:[phone] [facility] No Information 7- 9 [place]. . Referring Provider: Alton Che, [address], [place], [address]. tel:[phone], [address], [id number], tel:[phone] [facility] Information 4-201 9 [place]. . Referring Provider: Alton Che, [address] [facility] [address], [place], [address]. tel:[phone], [address], [id number], [place] tel:[phone] [facility] Information 0-201 9 [place]. . Referring Provider: Alton Che, [address], [place], [address]. tel:[phone], [address] [place] [address], [id number], tel:[phone] [facility] Information 0 7-201 9 [place]. . Referring Provider: Alton Che, [address] [address], [place], [address]. tel:[phone], [address], [id number], [place] tel:[phone] [facility] Information 0 4-201 9 [place]. . Referring Provider: Dean Leyva, [address] [place] [address], [place], [address]. tel:[phone] [employer], [address] [place], [place] [address], [id number], [place] tel:[phone] [facility] Information 0 1-201 9 [place]. . Referring Provider: Dean Leyva, [address] [place] [address] [address] [facility], [place], [address]. tel:[phone], [address] [place] [address], [id number], [place] tel:[phone] [facility] Information Sep-2 4-201 9 [place]. . Referring Provider: Dean Leyva, [address] [place] [address], [place], [address]. tel:[phone], [address] [place] [address], [id number], tel:[phone] [facility] Information Sep-1 9-201 9 [place]. . Referring Provider: Dean Leyva, [address] [place] [address], [place], [address]. tel:[phone], [address] [place] [address], [id number], tel:[phone] [facility] Information Sep-1 6-201 9 [place]. . Referring Provider: Dean Leyva, [address] [place] [address], [place], [address]. tel:[phone], [address] [place] [address], [id number], [place] tel:[phone] [facility] Information Sep-1 2-201 9 [place]. . Referring Provider: Dean Leyva, [address] [place] [address], [place], [address]. tel:[phone], [address] [place] [address], [id number], [place] tel:[phone] [facility] Information Sep-0 5-201 9 [place]. . Referring Provider: Dean Leyva, [address] [place] [address], [place], [address]. tel:[phone], [address] [place] [address], [id number], tel:[phone] [facility] Information Sep-0 3-201 9 [place]. . Referring Provider: Dean Leyva, [address] [place] [address], [place], [address]. tel:[phone], [address] [place] [address], [id number], tel:[phone] [employer] Information 3 0-201 9 [place]. . Referring Provider: Dean Leyva, [address] [place] [address], [place], [address]. tel:[phone], [address] [place] [address], [id number], [place] tel:[phone] [employer] No Information 7-201 9 [place]. . Referring Provider: Dean Leyva, [address] [place] [address], [place], [address]. tel:[phone], [address] [place] [address], [id number], [place] tel:[phone] [employer] Information 2-201 9 [place]. . Referring Provider: Dean Leyva, [address] [place] [address], [place], [address]. tel:[phone], [address] [place] [address], [id number], [place] tel:[phone] [employer] Information 9-201 9 [place]. . Referring Provider: Dean Leyva, [address] [place] [address], [place], [address]. tel:[phone], [address] [place] [address], [id number], [place] tel:[phone] [employer] No Information 5-201 9 [place]. . Referring Provider: Dean Leyva, [address] [place] [address], [place], [address]. tel:[phone], [address], [id number], [place] tel:[phone] [facility] Information 2- 9 [place]. . Referring Provider: Dean Leyva, [address] [place] [address], [place], [address]. tel:[phone], [address], [id number], [place] tel:[phone] [facility] Information 8-201 9 [place]. . Referring Provider: Dean Leyva, [address] [place] [address], [place], [address]. tel:[phone], [address] [place] [address], [id number], tel:[phone] [facility] Information 201 9 [place]. . Referring Provider: Dean Leyva, [address] [place] [address], [place], [address]. tel:[phone], [address], [id number], [place] tel:[phone] [facility] Information 9 [place]. . Referring Provider: Dean Leyva, [address] [place] [address], [place], [address]. tel:[phone], [address], [id number], [place] tel:[phone] [facility] Information 201 9 [place]. . Referring Provider: Dean Leyva, [address] [place] [address], [place], [address]. tel:[phone], [address], [id number], [place] tel:[phone] [facility] No Information 9 [place]. . Referring Provider: Dean Leyva, [address] [place] [address], [place], [address]. tel:[phone], [address] [place] [address], [id number], tel:[phone] [facility] No Information 9 [place]. . Referring Provider: Dean Leyva, [address] [place] [address], [place], [address]. tel:[phone], [id number], tel:[phone] [facility] No Information 9 [place]. . Referring Provider: Dean Leyva, [address] [place] [address], [place], [address]. tel:[phone], [address] [place] [address], [id number], tel:[phone] [facility] [place] No Information 9 [place]. . Referring Provider: Dean Leyva, [address] [place] [address], [place], [address]. tel:[phone], [id number], [place] tel:[phone] [facility] [place] No Information 9 [place]. . Referring Provider: Dean Leyva, [address] [place] [address], [place], [address]. tel:[phone] Family History Family Member Type Diagnosis Age At Onset No Information Payers Payer name Insurance type Covered democrat ID Authoriza tireyes(s) Medicare [place] MB [id number] [facility] [id number] Social History Type Description Quantity Date Captured Comments Sex Female Smoking Status No Information Chief Complaint And Reason For Visit No Information Reason For Referral Reason For Referral No Information Plan Of Treatment Date Type Action Status Referral Ordered: PCP timeframe: 1 week. (related to Overweight) ordered Referral Ordered: Weight management: Referral to physician timeframe: 1 Month. (related to Overweight) ordered History Of Present Illness Encounter Date Complaint History Of Prese nt Illness No Information Functional Status Date Functional Assessmen t No Information Instructions Date Instruction Additional Infor mation No Information Assessments Type Assessment Date No Information Patient Care Teams Name Effective Dates (start - stop) Status Members No Information
--- OUTSIDE RECORDS SUMMARY | 2024-12-18 00:32 | XMS_ITS | Continuity of Care Document ---
Author Organization [facility] Address [address] [place] [address] Phone Care Team Providers Care Paper Cone Drying Machine Operator Name Role Phone Jean-Paul PT, Tabatha Unavailable Unavailable Procedures Procedure Date Therapeutic Activities Neuromuscular Re-Ed Therapeutic Activities Neuromuscular Re-Ed Therapeutic Activities Neuromuscular Re-Ed Canalith Repositioning Procedure 2024 Therapeutic Activities Neuromuscular Re-Ed Therapeutic Exercise Therapeutic Activities Neuromuscular Re-Ed Therapeutic Exercise Therapeutic Activities Neuromuscular Re-Ed Therapeutic Exercise Therapeutic Activities Therapeutic Exercise Neuromuscular Re-Ed Doc neg elder mal no plan PRES/ABSN URINE INCON ASSESS PT Evaluation Moderate Complexity Therapeutic Activities Neuromuscular Re-Ed Doc neg elder mal no plan PRES/ABSN URINE INCON ASSESS PT Evaluation Low Complexity Neuromuscular Re-Ed Therapeutic Activities Advance Directives Directive Yes / No Effective Date File Name No Information Encounters Encounter Description Practice Location Reason(s) For Visit Diagnoses Date Provider Providers [facility] [address], [place], [place], [id number], tel:[phone] [facility] No Information 5 Je[place] Tabtaha. . Referring Provider: Cande Esqueda [address], [place], [address]. tel:[phone] [facility], [address] [address], [place], [place], [id number], [place] tel:[phone] [facility] No Information 5 Je[place] Tabatha. . Referring Provider: Cande Esqueda [address], [place], [address]. tel:[phone] [facility], [address] [address], [place], [place], [id number], tel:[phone] [facility] No Information 5 Jeong Tabatha. . Referring Provider: Cande Esqueda [address], [place], [address]. tel:[phone] [facility], [address], [id number], [place] tel:[phone] [facility] No Information 5 Je[place] Tabatha. . Referring Provider: Cande Esqueda [address] [facility] [address], [place], [address]. tel:[phone] [facility], [address] [facility] [address], [place], [place], [id number], [place] tel:[phone] [facility] No Information 5 [place] Tabatha. . Referring Provider: Cande Esqueda [address], [place], [address]. tel:[phone] [facility], [address] [facility] [address], [place], [place], [id number], tel:[phone] [facility] No Information 5 Jean-Paul Mays. . Referring Provider: Buddy Griffin, [address] [facility] [address], [place], [address]. tel:[phone] [facility], [address] [address], [place], [place], [id number], tel:[phone] [facility] No Information - 5 Jean-Paul Mays. . Referring Provider: Buddy Griffin, [address] [facility] [address], [place], [address]. tel:[phone] [facility], [address], [id number], [place] tel:[phone] [facility] No Information 5 Jean-Paul Mays. . Referring Provider: Buddy Griffin, [address] [facility] [address], [place], [address]. tel:[phone] [facility], [address], [id number], [place] tel:[phone] [facility] No Information 0 4 Zia Kwong. . Referring Provider: Jose Hayward, [address] [place] [address], [address] . tel:[phone] Family History Family Member Type Diagnosis Age At Onset No Information Payers Payer name Insurance type Covered constitution party ID Authorkurtis ferraro(s) Medicare [place] MB [id number] [facility] [id number] Social History Type Description Quantity Date Captured Comments Sex Female Smoking Status No Information Chief Complaint And Reason For Visit No Information Reason For Referral Reason For Referral No Information History Of Present Illness Encounter Date Complaint History Of Prese nt Illness No Information Functional Status Date Functional Assessmen t No Information Instructions Date Instruction Additional Infor mation No Information Assessments Type Assessment Date No Information Patient Care Teams Name Effective Dates (start - stop) Status Members No Information
--- OUTSIDE RECORDS SUMMARY | 2024-12-18 00:32 | XMS_ITS | Encounter Summary ---
Author Organization [facility] Address [facility] [place] [address] Care Team Providers Care Marketing And Promotions Manager Name Role Phone Jhoana Christianson [facility] Primary Care Provider Pato Tamez MD Unavailable [phone] Nemesio Javier MD Unavailable [phone] Encounter Details Date Type Department Care Team (Late st Contact Info) Description 05/07/2017 Hospital Orders Only [facility] Knotting Machine Operator Portable [place], [place] [id number] Hal Saavedra MD Three [facility]. [address] [place], [place] [id number] Social History Tobacco Use Types Packs/Day Years Used Date Smoking Tobacco: Never Assessed Comments Unknown Sex and Gender Information Value Date Recorded Sex Assigned at Female 08/26/2024 9:42 AM CDT Legal Sex Female 7:26 PM CDT Gender Identity Not on file Sexual Orientation Not on file documented as of this encounter Plan of Treatment Upcoming Encounters Date Type Department Care Team (Late st Contact Info) Description 02/25/2025 8:40 AM CDT Office Visit [address] [place] [address] Jhoana Christianson [address] [place] [address] 12/23/2025 9:00 AM CDT Office Visit [facility] [address] [place] [address] Sobeida Camp, RIGHT OF WAY MANAGER Three [address] [address] documented as of this encounter Visit Diagnoses Diagnosis Precordial chest pain- Primary Precordial pain documented in this encounter Additional Health Concerns Infection Onset Date Last Indicated Resolved Time COVID-19 Rule Out 09/17/2020 09/17/2020 09/18/2020 2:06 PM CDT COVID-19 Rule Out 06/05/2021 06/05/2021 06/05/2021 11:51 AM CERTIFIED DRIVER EXAMINER COVID-19 Rule Out 06/06/2021 06/06/2021 06/06/2021 9:23 PM CERTIFIED DRIVER EXAMINER documented as of this encounter Care Teams Marketing And Promotions Manager Relationship Specialty Start Date End Date Jhoana Christianson FNP [address] [place] [address] [place] [address] PCP - General NURSE PRACTITIONER 03/03/17 Pato Tamez MD Three [facility]. [address] [address] [employer] [employer] Letter Carrier CARDIOVASCULAR DISEASE 03/03/17 Nemesio Javier MD [address] [facility] [address] [address] INTERNAL MEDICINE 06/01/19 documented as of this encounter
--- OUTSIDE RECORDS SUMMARY | 2024-12-18 00:32 | XMS_ITS | Clinical Summary ---
Author Organization [facility] Address [address] [place] [address] Care Team Providers Care Smoking Pipe Repairer Name Role Phone Jhoana Christianson MATHEMATICAL SCIENCES PROFESSOR Primary Care Provider [phone] Pato Tamez MD Unavailable [phone] Nemesio Javier MD Unavailable [phone] Allergies Active Allergy Reactions Criticality Noted Date Comments Miconazole Contact Dermatitis 05/07/2017 Benzoin Itching,Rash Medium 08/24/2015 Steri strips Sulfa Antibiotics Vomiting,Nausea and Vomiting Low 08/16/2015 Tape Itching,Rash Medium 08/24/2015 Medications calcium carbonate-vitamin D 600-400 MG-UNIT tabletIndications: Nutritional Support Take 1 tablet by mouth daily. Indications: Nutritional Support 07/17/19 19 Active TURMERIC CURCUMIN ORIndications:Nutr itional Support,450mg-50 mg Take 1 capsule by mouth daily. Indications: Nutritional Support, 450mg-50 mg 09/23/19 21 Active ASPIRIN EC 81 MG tabletIndications: Status post total right knee replacement TAKE 1 TABLET BY MOUTH TWICE A DAY FOR 30 DAYS FOR CLOT PREVENTION 60 tablet 10/28/19 21 Active Additional Information Patient taking differently: 81 mg Daily, Reason: Other (on hold for colonoscopy), Reported on 12/17/2024 Lancets (ONETOUCH DELICA PLUS [id number]) MiscIndications:Ty pe 2 diabetes mellitus with hyperglycemia, without long-term current use of insulin ([facility]) 1 Lancet by Other route daily. 100 each 3 08/06/19 24 Active Vitamin D3 (VITAMIN D) 50 mcg tablet Take 1 tablet (50 mcg total) by mouth daily. Active ONETOUCH ULTRA test stripIndications:T ype 2 diabetes mellitus with complication, without long-term current use of insulin ([facility]) TEST BLOOD SUGAR DAILY AND NEEDED . 100 strip 3 06/30/19 25 Active rosuvastatin (CRESTOR) 20 MG tabletIndications: Mixed hyperlipidemia TAKE 1 TABLET BY MOUTH EVERY DAY 90 tablet 1 09/09/19 25 Active isosorbide mononitrate ER (IMDUR) 30 MG 24 hr tablet TAKE 1/2 OF A TABLET (15 MG TOTAL) BY MOUTH DAILY 45 tablet 11/18/19 25 Active losartan (COZAAR) 100 MG tabletIndications: Primary hypertension TAKE 1 TABLET BY MOUTH EVERY DAY 90 tablet 11/19/19 25 Active pioglitazone (ACTOS) 15 MG tabletIndications: Type 2 diabetes mellitus with hyperglycemia, without long-term current use of insulin ([facility]) TAKE 1 TABLET (15 MG TOTAL) BY MOUTH DAILY. 90 tablet 11/19/19 25 Active semaglutide (OZEMPIC) 2 mg/dose injection (PEN)Indications:D iabetes Mellitus INJECT 2 MG INTO THE SKIN ONCE A WEEK. INDICATIONS: DIABETES 2 mL 2 11/19/19 25 Active alendronate (FOSAMAX) 70 MG tabletIndications: Osteoporosis,Postm enopausal TAKE 1 TABLET (70 MG TOTAL) BY MOUTH EVERY 7 DAYS 12 tablet 11/19/19 25 Active FARXIGA 10 MG tabletIndications: Type 2 diabetes mellitus with hyperglycemia, without long-term current use of insulin ([facility]) TAKE 1 TABLET BY MOUTH EVERY DAY 90 tablet 11/19/19 25 Active Active Problems Problem Noted Date Diagnosed Date OAB (overactive bladder) 07/26/2022 PLMD (periodic limb movement disorder) 1 Overview (07/18/2021): Last Assessment & Plan: The patient denies that her limbs are moving at night when she sleeps. 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 Rose Cerrato Surgeon: Dr. Roxanne Rubio Radiation oncologist: Dr. Yissel Ricardo Primary care physician: Dr. 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 Also lobular carcinoma in situ. TNM: Tmi N0 M0, stage I Stage: 0 [] I [x] II [] III [] IV ER: Negative MA: Negative Tgr7Bio: Positive Oncotype results if performed: Surgery: [x] Yes [] No Surgery date: 08/23 and 09/08/15 Surgical procedures/location/findings: 08/23 left lumpectomy. 09/08/15 left axillary sentinel lymph node biopsy. Lymph nodes removed: [x] Yes, 0/4 [] No Systemic therapy (chemotherapy): [] Yes [x] No Names of therapy used: Number of cycles and end date: Clinical trial: [] Yes [x] [place] of trial: Drugs given and date completed: [...] years and then every 6 months year 4/5 and then yearly. If no radiation therapy, [...] other tests as indicated on each visit INDIGO VAT TENDER CLOTH continue your yearly visit. If you are on tamoxifen you have a greater chance of developing uterine cancer. You should report any abnormal vaginal bleeding to your doctor. *Physical exam and other tests (Pap test) as indicated on each visit. Please continue to see your primary care physician/INDIGO VAT TENDER CLOTH for all general health care recommended for a female your age. Possible late and/or terminologist effects that someone with this type of [...] [] Star [] [facility] [] [facility] Pastoral Services [facility] at the [facility] [x] Other (Specify): 1. Interested in weight loss and exercise. Will contact the [facility] for information on the Live Strong program. [place] Operator in cancer information center if interested in the future. ADDITIONAL RESOURCES Patients may have many questions and concerns after their cancer treatment ends. A list of local resources as provided below to assist you. [facility] cancer information flag pond: [place] [employer] (ACS): www.acs.org National Cancer [place] (NCI): www.cancer.gov [place] Society of clinical oncology (ASCO): www.cancer.net Komen: www.komen.org Livestrong: www.idiotrongLifeGuard Games Radiation therapy: www.rtanswers.org Patient signature: ASSISTANT CONTROLLER signature: Date delivered on: 05/08/2016 60 minutes of time were spent with the patient and over 50% of time was spent in counseling, discussing her issues, chief complaints, diet, exercise, prevention, supplements, etc. or in the coordination of care. Diabetes mellitus, type II ([facility]) Overview (04/11/2018): Note: new onset Osteoarthrosis 06/26/2012 Overview (04/11/2018): Note: Right Hip OA better, L-spine OA stable Osteopenia 06/26/2012 Mixed hyperlipidemia Essential hypertension Resolved Problems Problem Noted Date Diagnosed Date Resolved Date Obesity (BMI 30.0-34.9) 02/01/202207/05 Spinal stenosis of lumbar re gion without neurogenic claudication 04/02/2019 07/25/2021 Radiculopathy, lumbar region 04/02/2019 07/25/2021 Class 1 obesity due to exces s calories without serious comorbidity with body mass index (BMI) of 34.0 to 34.9 in adult 06/26/201206/2021 Anosmia 07/25/2021 Overview (07/25/2021): lost sense of taste and smell Apr 2020, had antibody titer done that showed probable Covid-19 infection per patient Bursitis 07/25/2021 Overview (07/25/2021): chronic right hip greater trochanter Encounters Date Type Department Care Team Description 12/17/2024 8:30 AM CDT Office Visit [facility] [address] [place] [address] Pato Tamez MD Follow Up 12/17/2024 Travel 11/28/2024 Scan HEALTH INFO SRVCS Scanned, [facility] from Last 3 Months Immunizations Immunization Administration Dates Next Due Arexvy Respiratory Syncytial Virus (RSV, adjuvanted) 0.5 mL, PF 05/02/2023 Fluad influenza vaccine, Qasim drivalent (aIIV4), Inactivated, adjuvanted, preservative free, 0.5 mL,IM use 03/27/2023 Fluzone High Dose (IIV, trivalent, 0.5mL) 2023 Fluzone High Dose - >Age 65 (Prefilled Syringe) 03/27/2023 Influenza (Generic) 03/25/2015 Influenza Adult (Generic) 03/14/2022,04/13/2021 PFIZER COVID-19 (CHRISTIANSON CAP), MRNA, LNP-S, PF, 30 MCG/0.3 ML JOSIE-SUCROSE, IM 07/13/2021 PFIZER COVID-19 (ORIGINAL FO RMULATION, PURPLE CAP) mRNA, LNP-S, PF, 30 MCG/0.3 ML DOSE 06/22/2021 Pneumococcal (Pneumovax 23) 09/04/2017 Pneumococcal (Prevnar 20) 09/11/2023 RSV VACCINE, UNSPECIFIED 05/02/2023 Shingrix 09/11/2023,12/02/2017,09/04/2017 Tdap (Historical Only-select from Sonosify glass) 01/01/2019 Family History Medical History Relation Comments Diabetes Brother Heart Disease Brother Kidney Disease Brother No Known Problems Daughter Heart Disease Father Hypertension Father Stroke Father Diabetes Mother Heart Disease Mother Family history is negative f or premature coronary artery disease. Other No Known Problems Paternal Grandfather Arthritis Paternal Grandmother Crippling w ith contractures Diabetes Sister 1 Diabetes Sister 2 Heart Disease Sister 2 No Known Problems Son Breast Cancer Neg Hx Relation Status Comments Brother (Age 51) of heart and kidney problems Daughter Alive Father (Age 68) of heart problems, lost his will to live when placed in fpc Mother (Age 65) of heart failure, respiratory problems Other Paternal Grandfather Paternal Grandmother Sister 1 Alive Sister 2 Alive Son Alive Social History Tobacco Use Types Packs/Day Years Used Date Smoking Tobacco: Never Smokeless Tobacco: Never Tobacco Cessation:Counseling Given: No Comments:Provider to counsellors Alcohol Use Standard Drinks/Week Comments No 0 [...] file Not on file Not on file Last Filed Vital Signs Vital Sign Reading Time Taken Comments Blood Pressure 100/60 12/17/2024 8:22 AM CDT Pulse 70 12/17/2024 8:22 AM CDT Temperature 36.7 C (98.1 F) 08/26/2024 9:42 AM CDT Respiratory Rate 16 12/17/2024 8:22 AM CDT Oxygen Saturation 98% 12/17/2024 8:22 AM CDT Inhaled Oxygen Concentration - - Weight 73.5 kg (162 lb) 12/17/2024 8:22 AM CDT Height 157.5 cm (5' 2) 12/17/2024 8:22 AM CDT Body Mass Index 29.63 12/17/2024 8:22 AM CDT Plan of Treatment Upcoming Encounters Date Type Department Care Team (Late st Contact Info) Description 02/25/2025 8:40 AM CDT Office Visit [facility] [address] [place] [address] Jhoana Christianson FNP [address] [place] [phone] 12/23/2025 9:00 AM CDT Office Visit [facility] [place] [address] Sobeida Camp, ASSISTANT CONTROLLER [address] [address] Health Maintenance Due Date Last Done Comments Colorectal Cancer Screening Colonoscopy (10 Years) 1955 Kidney Health Evaluation 1955 Hepatitis C 12/05/1975 Diabetes: Retinopathy Eye Exam 01/26/2021 01/26/2019 ASCVD LDL 08/29/2024 08/30/2023, 0 02/2023, 07/19/2021, Additional history exists Lipid Panel 08/29/2024 08/30/2023, 0 02/2023, 07/19/2021, Additional history exists COVID-19 Vaccine ( season) 2025 07/13/2021, 06/22/2021 Postponed from 02/02/2024 (Patient Refused) Hemoglobin A1C 02/28/2025 08/28/2024, 1007/2023, 09/18/2023, Additional history exists Mammogram Screening 10/08/2025 10/09/2023, 09/30/2023, 09/13/2023, Additional history exists DTaP, Tdap and Td Vaccines (2 - Td or Tdap) 01/01/2029 01/01/2019 RSV Immunization or 60+ Years Completed 05/02/2023, 05/02/2023 Pneumococcal Vaccine: 50+ Years Completed 09/11/2023, 09/04/2017 Zoster Vaccines Completed 09/11/2023, 07/2017, 09/04/2017 Dexa Scan (General) Completed 03/16/2024, PHQ-2 (Physician [place]) Completed 08/26/2024 Meningococcal B Vaccine Aged Out No l onger eligible based on patient's age to complete this topic Meningococcal Vaccine Aged Out No babatunde edil eligible based on patient's age to complete this topic RSV Immunizations Under 20 Months Aged Out No longer eligible based on patient's age to complete this topic Goals Goal Patient Goal Type Associated Problems Recent Progress Patient-Stated? Author Health - patient able to perform ADLs independently General Adri Fuentes, RN Medical Devices Implanted Type Area Eating Disorder Psychologist Device Identifier Shelf Expiration Date Model / Serial / Lot Cement Full Dose - [id number] Implanted:Qt y: 1 on 09/20/2020 by Herman Hernandez MD at [facility] Cement Implant Right: Knee [employer] - DIV [employer] KIKE [id number] 01/31/2022 6191-1-001 / / [id number] Cement Bone Tobramycin Simplex - [id number] Implanted:Qt y: 1 on 09/20/2020 by Herman Hernandez MD at [facility] Cement Implant Right: Knee [employer] - DIV BLOSSOM KIKE [id number] 09/30/2021 6197-9-010 / / [id number] Persona Femur Cemented Posterior Stabilized Narrow Implanted:Qt y: 1 on 09/20/2020 by Herman Hernandez MD at [facility] Knee Components Right: Femur [employer] [id number] 01/04/2030 [id number] / / [id number] Persona Natural Tibia Cemented 5 Degree Stemmed Implanted:Qt y: 1 on 09/20/2020 by Herman Hernandez MD at [facility] Knee Components Right: Tibia [employer] [id number] 01/04/2030 [id number] / / [id number] Surface Articular Dalia Persona 10mm Right - [id number] Implanted:Qt y: 1 on 09/20/2020 by Herman Hernandez MD at [facility] Knee Components Right: Tibia [employer] [id number] 03/07/2028 [id number] / / [id number] Procedures Procedure Name Priority Date/Time Associated Diagnosis Comments OUTSIDE LAB (SCAN ORDER) Routine 08/28/2024 BONE DENSITY GENERIC (SCAN ORDER) 03/16/2024 MG POST PROC LT DIAG MAMMO Routine 10/09/2023 1:50 PM CDT History of breast cancer Status post biopsy LIPID PANEL Routine 08/30/2023 8:40 AM CDT Mixed hyperlipidemia DILATED EYE EXAM (SCAN) Routine 01/26/2019 from Last 3 Months or Most Recently Relevant to Health Maintenance Results * OUTSIDE LAB (08/28/2024) HGB A1C 8.2 % [facility] 08/28/2024 [employer] Scanned SCANNING Final Resu lt [facility] * BONE DENSITY GENERIC (SCAN ORDER) (03/16/2024) Anatomical Region Laterality Modality Other 03/16/2024 [place] [facility] Scanned SCANNING Final Resu lt * MG POST PROC LT DIAG MAMMO (10/09/2023 1:50 PM CDT) Anatomical Region Laterality Modality Breast Left Mammography 10/14/2023 7:29 PM CDT Impressions 10/14/2023 7:34 PM CDT IMPRESSION: 1. Uneventful ultrasound-guided left breast core needle biopsy as described. 2. The final pathologic diagnosis is benign, as above, and concordant with imaging. Follow-up left mammography in six months to establish post procedure baseline is now all that is recommended. Referred By: Interpreted By: Eric Mariano MD, 10/14/2023 7:29 PM Narrative 10/14/2023 7:34 PM CDT Examination: Ultrasound-guided left breast core needle biopsy and postprocedure two view digital left mammogram. [id number] Clinical history: Indeterminate nodule. Tissue diagnosis. Comparison: 09/30/2023, 09/13/2023. Technique: Grayscale ultrasound for procedure guidance, digital mammograms. Findings: Prior imaging was reviewed. Appropriate consent and timeout procedures were accomplished. Sonographic evaluation of the left breast redemonstrates the previously described hypoechoic nodule near the 12:00 position 2 cm from the nipple representing the biopsy target.. An approach for biopsy was selected and localized under ultrasound. Following sterile prep and local anesthesia with 1% Xylocaine, a small skin leland was placed to facilitate introduction of the 13-gauge coaxial guiding needle into the breast. Under direct sonographic guidance, the target lesion was biopsied without incident through the guiding needle utilizing a 14-gauge Marquee needle. Three passes were made.. Sampling was deemed adequate. Specimens were placed in formalin and sent to the lab for processing. A tissue marker was subsequently deployed into the biopsy site and all needles removed. Hemostasis was achieved via manual compression. Postprocedure scans show no immediate complication. The skin entry site was cleaned and dressed per the pharmacy helper. The patient tolerated the procedure well. Postprocedure two view digital left mammogram documents mammographic/sonographic concordance with adequate positioning of the tissue marker. No postbiopsy hematoma is evident. The final pathologic diagnosis is benign revealing benign breast parenchyma with fat necrosis and associated dense fibrosis and calcification. This is judged concordant with imaging. Follow-up left mammography in six months to establish post procedure baseline is now all that is recommended. Jhoana Christianson MATHEMATICAL SCIENCES PROFESSOR MAMMO Final Result * LIPID PANEL (08/30/2023 8:40 AM CDT) CHOLESTEROL 142 0 - 200 MG/DL 08/30/2023 9:19 AM CDT [facility] TRIGLYCERIDES 67 0 - 150 MG/DL 08/30/2023 9:19 AM CDT [facility] HDL 79 >40 MG/DL 08/30/2023 9:19 AM CDT [facility] LDL (CALCULATED) 50 <100 MG/DL 08/30/2023 9:19 AM CDT [facility] NON HDL CHOLESTEROL 63 0 - 130 MG/DL 08/30/2023 9:19 AM CDT [facility] Comment: NOTE: WHEN THE TRIGLYCERIDES ARE >200 mg/dL, NON HDL C IS A SECONDARY TARGET OF THERAPY, WITH A GOAL 30 mg/dL HIGHER THAN THE IDENTIFIED LDL C GOAL. CHOL/HDL RATIO 1.8 0.0 - 4.5 08/30/2023 9:19 AM CDT [facility] VLDL CALCULATION 13 5 - 55 MG/DL 08/30/2023 9:19 AM CDT [facility] LIPID INTERPRETATION 08/30/2023 9:19 AM CDT [facility] Comment: NIH CONCENSUS REPORT RECOMMENDATIONS: ADULT CHILD LOW RISK: CHOLESTEROL <200 <170 TRIGLYCERIDE <150 --- HDL >=60 --- LDL <100 <110 BORDERLINE: CHOLESTEROL 200-239 170-199 TRIGLYCERIDE 150-199 --- HDL 40-59 --- LDL 100-159 110-129 HIGH RISK: CHOLESTEROL >=240 >=200 TRIGLYCERIDE >=200 --- HDL <40 --- LDL >=160 >=130 08/30/2023 8:40 AM CDT us Pato Tamez MD LABORATORY Final Result [facility] [address] [facility] [place] [address], * DILATED EYE EXAM (01/26/2019) us Documents Scanned SCANNING Edited Result - Final from Last 3 Months or Most Recently Relevant to Health Maintenance Insurance MEDICARE PART A [employer] Advance Directives * Full Code (Latest Code Status on File) Date Activated Date Inactivated Comments 09/22/2020 1:31 PM 07/17/2022 8:31 AM * Full Code Date Activated Date Inactivated Comments 09/20/2020 10:43 AM 09/21/2020 5:15 PM * Full Code Date Activated Date Inactivated Comments 06/10/2019 1:00 PM 06/12/2019 2:39 PM * Full Code Date Activated Date Inactivated Comments 05/07/2017 10:39 AM 05/09/2017 2:56 AM Care Teams Smoking Pipe Repairer Relationship Specialty Start Date End Date Jhoana Christiansno FNP [address] [place] [address] [place] [address] PCP - General NURSE PRACTITIONER 03/03/17 Pato Tamez MD [facility] [address] [place] [address] [place] Manager Bakery CARDIOVASCULAR DISEASE 03/03/17 Nemesio Javier MD [address] [facility] [address] [address] INTERNAL MEDICINE 06/01/19
--- OUTSIDE RECORDS SUMMARY | 2024-12-18 00:32 | XMS_ITS | Encounter Summary ---
Author Organization [facility] Address [address] [place] [address] Care Team Providers Care Sword Swallower Name Role Phone Jhoana Christianson FACER OPERATOR Primary Care Provider Pato Tamez MD Unavailable [phone] Nemesio Javier MD Unavailable [phone] Reason for Visit * Reason Comments Follow Up Encounter Details Date Type Department Care Team (Late st Contact Info) Description 12/17/2024 8:30 AM CDT Office Visit [facility] [place] [address] Pato Tamez MD [address] [address] Follow Up Social History Tobacco Use Types Packs/Day Years Used Date Smoking Tobacco: Never Smokeless Tobacco: Never Comments:Provider to senior genetic counselor Alcohol Use Standard Drinks/Week Comments No [...] on file documented as of this encounter Last Filed Vital Signs Vital Sign Reading Time Taken Comments Blood Pressure 100/60 12/17/2024 8:22 AM CDT Pulse 70 12/17/2024 8:22 AM CDT Temperature - - Respiratory Rate 16 12/17/2024 8:22 AM CDT Oxygen Saturation 98% 12/17/2024 8:22 AM CDT Inhaled Oxygen Concentration - - Weight 73.5 kg (162 lb) 12/17/2024 8:22 AM CDT Height 157.5 cm (5' 2) 12/17/2024 8:22 AM CDT Body Mass Index 29.63 12/17/2024 8:22 AM CDT documented in this encounter Functional Status * RETIRED Are [...] Jara RN Active documented in this encounter Progress Notes * Pato Tamez MD - 12/17/2024 8:30 AM CDT Images from the original note were not included. [place], [place] [address] Cardiology Clinic Note CC: Follow Up Date: 12/17/2024 PCP: YOSELIN SANTIAGO Paty Riggs is a 69-year-old female being seen today for Follow Up. She continues to very well from a cardiac standpoint with no complaints of chest pain, shortness ofbreath, heart failure symptoms. Problem list: Nonobstructive coronary artery disease Hypertension Dyslipidemia Diabetes JAZMYN on CPAP Breast cancer, August 2015, status post lumpectomy, status post left-sided radiation therapy. Assessment and Plan: Nonobstructive CAD No anginal symptoms Continue with risk factor modification including aspirin, high intensity statin Continues on isosorbide Hypertension Very well-controlled Hyperlipidemia Remains on high intensity statin. Primary care provider will be checking lipid panel later this summer. I will plan to see her back annually unless issues arise in the interim. Thank you for allowing me to participate in the care of your patient. Please feel free to contact me with any further questions or concerns. Diagnostic studies Cath 05/07/2017 - A 10% stenosis in the ostial left main. A 20% stenosis in mid left anterior descending artery. A 10% stenosis in proximal right coronary artery and 10% stenosis in distal right coronary artery. Normal left ventricular function. Labs: Lab Results Component Value Date CHOL 142 08/30/2023 TRI 67 08/30/2023 HDL 79 08/30/2023 LDL 50 08/30/2023 Physical examination: Filed Vitals: 12/17/24 0819 12/17/24 0822 BP: 102/60 100/60 Pulse: 70 Resp: 16 SpO2: 98% Weight: 73.5 kg (162 lb) Height: 1.575 m (5' 2) Cardiac Exam Rate/Rhythm: Normal rate and regular rhythm. PMI: PMI is not displaced. Pulses: Normal pulses. Heart Sounds: Normal heart sounds. Normal S1 sounds. Normal S2 sounds. No gallop present. No S3. NoS4. Murmurs: Physical Exam Constitutional: No distress. Healthy Appearance. HENT: Oropharynx clear. Eyes: Pupils equal, round, and reactive to light. Conjunctivae normal. Neck: Neck supple. No JVD. Abdomen: Abdomen soft. Bowel sounds normal. No tenderness. No mass. No hepatomegaly. No splenomegaly. Abdominal aorta not palpably enlarged. No abdominal bruit present. Pulmonary: Effort normal. Breath sounds normal. Skin: No rash. No cyanosis. No clubbing. No xanthoma. Musculoskeletal: No kyphosis. Normal ROM. Neurological: Alert. Oriented x 3. Appropriate mood and affect. Normal motor skills. Normal gait. Comments: Allergies: Review of patient's allergies indicates: Allergen Reactions Steri-Strip Compound Benzoin [Benzoin] Itching and Rash Steri strips Tape Itching and Rash Neosporin Af [Miconazole] Contact Dermatitis Sulfa Antibiotics Vomiting and Nausea and Vomiting Medications: There are no discontinued medications. No orders of the defined types were placed in this encounter. Current Outpatient Medications Medication Sig alendronate (FOSAMAX) 70 MG tablet TAKE 1 TABLET (70 MG TOTAL) BY MOUTH EVERY 7 DAYS ASPIRIN EC 81 MG tablet TAKE 1 TABLET BY MOUTH TWICE A DAY FOR 30 DAYS FOR CLOT PREVENTION (Patienttaking differently: 1 tablet (81 mg total) daily.) calcium carbonate-vitamin D 600-400 MG-UNIT tablet Take 1 tablet by mouth daily. Indications: Nutritional Support FARXIGA 10 MG tablet TAKE 1 TABLET BY MOUTH EVERY DAY isosorbide mononitrate ER (IMDUR) 30 MG 24 hr tablet TAKE 1/2 OF A TABLET (15 MG TOTAL) BY MOUTH DAILY Lancets (ONETOUCH DELICA PLUS [id number]) Misc 1 Lancet by Other route daily. losartan (COZAAR) 100 MG tablet TAKE 1 TABLET BY MOUTH EVERY DAY ONETOUCH ULTRA test strip TEST BLOOD SUGAR DAILY AND NEEDED . pioglitazone (ACTOS) 15 MG tablet TAKE 1 TABLET (15 MG TOTAL) BY MOUTH DAILY. rosuvastatin (CRESTOR) 20 MG tablet TAKE 1 TABLET BY MOUTH EVERY DAY semaglutide (OZEMPIC) 2 mg/dose injection (PEN) INJECT 2 MG INTO THE SKIN ONCE A WEEK. INDICATIONS:DIABETES TURMERIC CURCUMIN OR Take 1 capsule by mouth daily. Indications: Nutritional Support, 450mg-50 mg Vitamin D3 (VITAMIN D) 50 mcg tablet Take 1 tablet (50 mcg total) by mouth daily. ROS: Review of Systems Constitutional: Negative for recent unintentional weight gain, recent unintentional weight loss andnew or significant fatigue. HENT: Negative for new or significant hearing loss. Eyes: Negative for blurred vision and double vision. Respiratory: Negative for cough, new or significant shortness of breath and snoring. Cardiovascular: See HPI. Gastrointestinal: Negative for blood in stool and melena. Genitourinary: Negative for dysuria. Musculoskeletal: Negative for myalgias and new or worsening joint stiffness/pain. Skin: Negative for rash. Neurological: Negative for tingling/numbness and focal weakness. Endo/Heme/Allergies: Negative for new or significant bruising/bleeding and polydipsia. Psychiatric/Behavioral: Negative for depression and new or significant memory loss. 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 Apr 2020, had antibody titer done that showed probable Covid-19 infection per patient Breast cancer ([facility]) 2015 s/p left lumpectomy and radiation x35 treatments Bursitis chronic right hip greater trochanter Coronary artery disease involving ramona coronary artery of ramona heart without angina pectoris 06/11/2017 Diabetes mellitus, type 2 ([facility]) 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 ([facility]) 05/08/2016 Overview: PATHOLOGY: Date: 08/24/15 lump; 09/08/15 SLN Breast:Left Cell type: DCIS with microinvasion,0.07cm ER: (-) neg 2/8 NV: (-) neg 0/8 Ki67: 21% Her2 ramin: amplified Grade: IG (NH7) Lymph node status:(-) 0/4 Staging: T1mi N0 Mx Stage: 1 BREAST CANCER TREATMENT SUMMARY AND SURVIVORSHIP PLAN Patient name: Paty Riggs Patient Patient : 1955 Essential hypertension Fracture of rib, closed Mixed hyperlipidemia Obesity JAZMYN on CPAP Osteoarthritis Osteopenia Pain in joint, shoulder region Spinal stenosis of lumbar region without neurogenic claudication 04/02/2019 Past Surgical History: Procedure Laterality Date BREAST BIOPSY BREAST LUMPECTOMY Left 09/2015 CARDIAC CATHETERIZATION CHOLECYSTECTOMY COLONOSCOPY FLX DX W/COLLJ SPEC WHEN PFRMD 2017 negative. EGD 2012 HIP SURGERY Right 10/23/2012 muscle & tendon repair HYSTERECTOMY KNEE ARTHROPLASTY Right 09/2020 Dr. David Dill's LAMINECTOMY,LUMBAR 06/2019 TONSILLECTOMY TUBAL LIGATION Social History Tobacco Use Smoking status: Never Smokeless tobacco: Never Tobacco comments: Provider to senior genetic counselor Vaping Use Vaping status: Never Used Substance Use Topics Alcohol use: No Drug use: No Family History Problem Relation Name Age of Onset Diabetes Mother Heart Disease Mother Diabetes Sister Diabetes Sister Heart Disease Sister Arthritis Paternal Grandmother Crippling with contractures Heart Disease Father Hypertension Father Stroke Father Diabetes Brother Kidney Disease Brother Heart Disease Brother No Known Problems Paternal Grandfather No Known Problems Daughter No Known Problems Son Other (Family history is negative for premature coronary artery disease.) Other Breast Cancer Neg Hx Social Drivers of Health Alcohol Use: Not At Risk (03/09/2021) Received from [facility] AUDIT-C Frequency of Alcohol Consumption: Never Average Number of Drinks: Not on file Frequency of Binge Drinking: Never Depression: Not at risk (08/26/2024) PHQ-2 PHQ-2 Score: 0 Financial Resource Strain: Not on file Food Insecurity: Not on file Health Literacy: Not on file Housing Stability: Not on file Intimate Partner Violence: Not on file Physical Activity: Not on file Social Connections: Not on file Stress: Not on file Tobacco Use: Low Risk (08/26/2024) Patient History Smoking Tobacco Use: Never Smokeless Tobacco Use: Never Passive Exposure: Not on file Transportation Needs: Not on file Utilities: Not on file Diagnoses 1. Coronary artery disease involving ramona coronary artery of ramona heart without angina pectoris 2. Essential hypertension 3. Mixed hyperlipidemia documented in this encounter Plan of Treatment Upcoming Encounters Date Type Department Care Team (Late st Contact Info) Description 02/25/2025 8:40 AM CDT Office Visit [facility] [address] [place] [address] Jhoana Christianson FNP [address] [place] [address] 12/23/2025 9:00 AM CDT [facility] [address] [id number] Sobeida Camp, TONG [address] [address] documented as of this encounter Goals Goal Patient Goal Type Associated Problems Recent Progress Patient-Stated? Author Health - patient able to perform ADLs independently General No Adri Corado, RN documented as of this encounter Visit Diagnoses Diagnosis Coronary artery disease involving ramona coronary artery of ramona heart without angina pectoris- Primary Essential hypertension Unspecified essential hypertension Mixed hyperlipidemia documented in this encounter Additional Health Concerns Assessment Noted Time PHQ-9 Depression Total Score: 0 07/18/19 22 9:53 AM PITCH GATHERER documented as of this encounter Care Teams Sword Swallower Relationship Specialty Start Date End Date Jhoana Christianson FNP [address] [place] [address] [place] [address] PCP - General NURSE PRACTITIONER 03/03/17 Pato Tamez MD [facility] [address] [place] [address] [facility] D[facility]at[facility] CARDIOVASCULAR DISEASE 03/03/17 Nemesio Javier MD [address] [facility] [address] [place] [address] INTERNAL MEDICINE 06/01/19 documented as of this encounter
--- OUTSIDE RECORDS SUMMARY | 2024-12-18 00:32 | XMS_ITS | Clinical Summary ---
Author Organization [facility] Address [address] [place] [address] Phone Care Team Providers Care Metal Technician Name Role Phone Samara Tejada Primary Care Provider [phone] Allergies Active Allergy Reactions Criticality Noted Date [...] mg by subcutaneous injection. 1 Active calcitonin, [place], (FORTICAL) 200 unit/actuation Perry, Non-Aerosol Administer 1 Perry in each nostril daily. 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 Rose Cerrato Surgeon: Dr. Roxanne Rubio Radiation oncologist: Dr. Yissel Ricardo Primary care physician: Dr. Samara Tejada SUPERVISOR WATER TREATMENT PLANT: Palliative care physician: Nurse Navigator: Advanced Practice Nurse: Michael Wright NP Other care team providers: Health And Social Care Teacher: Dr Evin Frances TREATMENT SUMMARY Diagnosis date: 08/08/15 Cancer type/location/histology subtype: Left breast ductal carcinoma in situ with microinvasion, Bryant score of 7. Also lobular carcinoma in situ. TNM: Tmi N0 M0, stage I Stage: 0 [] I [x] II [] III [] IV ER: Negative ND: Negative [id number]: Positive Oncotype results if performed: Surgery: [x] Yes [] No Surgery date: 08/23 and 09/08/15 Surgical procedures/location/findings: 08/23 left lumpectomy. 09/08/15 left axillary sentinel lymph node biopsy. Lymph nodes removed: [x] Yes, 0/4 [] No Systemic therapy (chemotherapy): [] Yes [x] No Names of therapy used: Number of cycles and end date: Clinical trial: [] Yes [x] Friend of trial: Drugs given and date completed: [...] other tests as indicated on each visit FINANCIAL SALES ADVISOR continue your yearly visit. If you are on tamoxifen you have a greater chance of developing uterine cancer. You should report any abnormal vaginal bleeding to your doctor. *Physical exam and other tests (Pap test) as indicated on each visit. Please continue to see your primary care physician/FINANCIAL SALES ADVISOR for all general health care recommended for a female your age. Possible late and/or truck terminal manager effects that someone with this type of [...] [] [facility] at the [facility] [x] Other (Specify): 1. Interested in weight loss and exercise. Will contact the [facility] for information on the Live Strong program. Agricultural Produce Sorter in cancer information center if interested in the future. ADDITIONAL RESOURCES Patients may have many questions and concerns after their cancer treatment ends. A list of local resources as provided below to assist you. [facility] cancer [facility]: [employer] Cancer Society (ACS): www.acs.org National Cancer [place] (NCI): www.cancer.gov [place] Society of clinical oncology (ASCO): www.cancer.net K[employer]: www.Zvooq.Emote Games Livestrong: www.SaludFÁCIL Radiation therapy: www.rtanswers.org Patient signature: CHIEF ENGINEER PRODUCTION signature: Date delivered on: 05/08/2016 60 minutes [...] on file Legal Sex Female 3:34 PM CIDER PRESS OPERATOR Gender Identity Not on file Sexual Orientation Not on file Last Filed Vital Signs Vital Sign Reading Time Taken Comments Blood Pressure 120/60 06/13/2021 9:47 AM CIDER PRESS OPERATOR Pulse 70 05/12/2019 1:50 PM CIDER PRESS OPERATOR Temperature 36.7 C (98.1 F) 05/08/2016 11:13 AM CIDER PRESS OPERATOR Respiratory Rate 16 05/08/2016 11:13 AM CIDER PRESS OPERATOR Oxygen Saturation 93% 09/08/2015 11:50 AM CDT Inhaled Oxygen Concentration - - Weight 87.5 kg (193 lb) 06/13/2021 9:47 AM CIDER PRESS OPERATOR Height 160 cm (5' 3) 06/13/2021 9:47 AM CIDER PRESS OPERATOR Body Mass Index 34.19 06/13/2021 9:47 AM CIDER PRESS OPERATOR Plan of Treatment Health Maintenance Due Date [...] exists OSTEOPOROSIS SCREENING 2022 INFLUENZA VACCINE (#1) 2025 03/25/2015 DTAP/TDAP/TD VACCINES (2 - T d or Tdap) 01/01/2029 01/01/2019 RSV VACCINE (60+ or ) (1 - 1-dose 75+ series) 2032 ZOSTER VACCINE Completed 12/02/2017, 09/04/2017 Procedures Procedure Name Priority Date/Time Associated Diagnosis Comments MAMMO 3D LUDMILA DIAGNOSTIC BILAT W OR WO CAD Routine 06/13/2021 9:21 AM CIDER PRESS OPERATOR 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 RECOMMENDATIONS: Bilateral annual routine mammogram. LEFT BREAST OVERALL FINAL ASSESSMENT: BI-RADS CATEGORY 2 - Benign findings. RIGHT BREAST OVERALL FINAL ASSESSMENT: BI-RADS CATEGORY 1 - Negative. DICTATION LOCATION: [facility] 06/13/2021 9:55 AM CIDER PRESS OPERATOR BILATERAL DIAGNOSTIC DIGITAL MAMMOGRAM WITH 3D TOMOSYNTHESIS [...] Advance Directives For more information, please contact: [phone] * Full Code (Latest Code Status on File) Date Activated Date Inactivated Comments 09/08/2015 7:53 AM 09/08/2015 4:30 PM * Full Code Date Activated Date Inactivated Comments 09/08/2015 7:24 AM 09/08/2015 7:53 AM * Full Code Date Activated Date Inactivated Comments 08/24/2015 12:25 PM 08/24/2015 4:22 PM * Full Code Date Activated Date Inactivated Comments 08/24/2015 10:42 AM 08/24/2015 12:25 PM Care Teams Metal Technician Relationship Specialty Start Date End Date Samara Tejada DO [address] [place] [address] [place] [address] PCP - General Family Practice 08/16/15
--- OUTSIDE RECORDS SUMMARY | 2024-12-18 00:32 | XMS_ITS | Clinical Summary ---
Author Organization [facility] Address [address] [facility] [address] Care Team Providers Care Telecommunications Cable Jointer Name Role Phone Terrell Samara Latesha PABLO Primary Care Provider [phone] Roxanne Rubio MD Unavailable [phone] Source Comments [facility] Affiliates and Associated Physician Practices is amultiple site organization consisting of ambulatory clinics and hospital sitesin [place], [place], [place] and [place]. This disclosure is being madepursuant to the Care Everywhere program and may not contain all information available regarding this patient. Last updated 18.[facility] Social History Tobacco Use Types Packs/Day Years Used Date Smoking Tobacco: Never Assessed Comments Unknown Sex and Gender Information Value Date Recorded Sex Assigned at Not on file Legal Sex Female 9:34 AM CDT Gender Identity Not on file Sexual [...] 2) 12/05/2007 MAMMOGRAM 05/12/2021 05/12/2019 COVID-19 VACCINE (1 - 2023-2 5 season) 2024 DEPRESSION SCREENING 06/03/2024 INFLUENZA VACCINE (#1) 2025 03/25/2015 Respiratory Syncytial Virus (RSV) Vaccine Pt: or [...] age to complete this topic Care Teams Telecommunications Cable Jointer Relationship Specialty Start Date End Date Samara Tejada DO PCP - General Family Medicine 02/26/20 Roxanne Rubio MD [address] [place] [address] [place] [id number] Surgical Oncologist General Surgery 02/26/20
--- NOTE | 2024-12-18 09:01 | P.PNAN_ITS ---
Anes - Initial Pre Proc Eval Procedure: Operation Date: 12/18/24 11:00 Proposed Procedures p Screening Colonoscopy - Thai Kahn MD Date/Time: 12/18/24 09:01 Surgeon: Thai Kahn MD Pre Op Diagnosis: screening neoplasm Patient Data Age: 69 Gender: F Height: 1.57 m Weight: 72 kg Allergies Allergy/AdvReac Type Severity Reaction Status Date / Time adhesive AdvReac Redness of Verified 12/18/24 09:50 Skin bacitracin (From Triple AdvReac Redness of Verified 12/18/24 09:50 Antibiotic) Skin neomycin (From Triple AdvReac Redness of Verified 12/18/24 09:50 Antibiotic) Skin polymyxin B (From Triple AdvReac Redness of Verified 12/18/24 09:50 Antibiotic) Skin Sulfa (Sulfonamide AdvReac Nausea and Verified 12/18/24 09:50 Antibiotics) Vomiting Home Medications ?Medication ?Instructions ?Recorded ?Confirmed ?Type alendronate 70 mg tablet 70 mg PO WEEKLY 12/07/24 12/18/24 History aspirin 81 mg tablet,delayed 81 mg PO DAILY 12/07/24 12/18/24 History release (Adult Aspirin Regimen) dapagliflozin propanediol 10 mg 10 mg PO DAILY 12/07/24 12/18/24 History tablet (Farxiga) isosorbide mononitrate 30 mg 15 mg PO DAILY 12/07/24 12/18/24 History tablet,extended release 24 hr losartan 100 mg tablet 100 mg PO DAILY 12/07/24 12/18/24 History pioglitazone 15 mg tablet 15 mg PO DAILY 12/07/24 12/18/24 History rosuvastatin 20 mg tablet 20 mg PO DAILY 12/07/24 12/18/24 History semaglutide 2 mg/dose (8 mg/3 mL) 2 mg subcut WEEKLY 12/07/24 12/18/24 History subcutaneous pen injector (Ozempic) Patient hx anesthesia problems: none Family hx anesthesia problems: none Results Review: All pre-operative results and documents have been reviewed as part of the pre- operative evaluation. [facility] Past Medical History Medical History (Updated 12/18/24 @ 09:02 by Anurag Carbajal DO) History of breast cancer Diabetes type 2, controlled JAZMYN (obstructive sleep apnea) Asthma Hypertension Hyperlipidemia Social History Social History (System 09/02/24 @ 11:19 by Cecily Lawson) Living arrangements: with family Spiritual care concerns: No Anes - Eval Final PreProcedure Day of Procedure 12/18/24 09:01 Patient weight: overweight Heart: regular rate and rhythm Lungs: clear to auscultation Airway: Mallampati scale class II Neurological: alert and oriented Last oral intake: >/= 8 hours ASA classification: III Emergent: no Anesthetic plan: proceed Anesthesia type and monitoring: general GIVS and standard monitoring Results Review: All pre-operative results and documents have been reviewed as part of the pre-operative evaluation. Informed Consent: The patient's anesthetic plan and its attendant risks and benefits were discussed with the patient/family/POA. Questions were solicited and answers provided to the satisfaction of the patient/family/POA.
[2024-12-18 09:45] VITALS: BP 121/66; PULSE 77; RESP 12; TEMP 36.6; O2SAT 100; BMI 28.9
[2024-12-18] MEDS: LACTATED RINGERS 1,000 ML 150 ML IV CONT (10:04)
--- NOTE | 2024-12-18 10:29 | PM.IMHP ---
H&P: HPI History of Present Illness Date/Time: 12/18/24 10:29 Chief Complaint: Screening colonoscopy Narrative: This is the patient's 2nd colonoscopy. There are no GI symptoms and there is no family history of colorectal cancer. Review of Systems Review of Systems: All systems reviewed & are unremarkable except as noted in HPI and below PMFSH Past Medical History Medical History (Updated 12/18/24 @ 10:29 by Thai Kahn MD) History of breast cancer Diabetes type 2, controlled JAZMYN (obstructive sleep apnea) Asthma Hypertension Hyperlipidemia Social History Social History (System 09/02/24 @ 11:19 by Cecily Lawson) Living arrangements: with family Spiritual care concerns: No Meds Home Medications and Allergies Home Medications ?Medication ?Instructions ?Recorded ?Confirmed ?Type alendronate 70 mg tablet 70 mg PO WEEKLY 12/07/24 12/18/24 History aspirin 81 mg tablet,delayed 81 mg PO DAILY 12/07/24 12/18/24 History release (Adult Aspirin Regimen) dapagliflozin propanediol 10 mg 10 mg PO DAILY 12/07/24 12/18/24 History tablet (Farxiga) isosorbide mononitrate 30 mg 15 mg PO DAILY 12/07/24 12/18/24 History tablet,extended release 24 hr losartan 100 mg tablet 100 mg PO DAILY 12/07/24 12/18/24 History pioglitazone 15 mg tablet 15 mg PO DAILY 12/07/24 12/18/24 History rosuvastatin 20 mg tablet 20 mg PO DAILY 12/07/24 12/18/24 History semaglutide 2 mg/dose (8 mg/3 mL) 2 mg subcut WEEKLY 12/07/24 12/18/24 History subcutaneous pen injector (Ozempic) Allergies Allergy/AdvReac Type Severity Reaction Status Date / Time adhesive AdvReac Redness of Verified 12/18/24 09:50 Skin bacitracin (From Triple AdvReac Redness of Verified 12/18/24 09:50 Antibiotic) Skin neomycin (From Triple AdvReac Redness of Verified 12/18/24 09:50 Antibiotic) Skin polymyxin B (From Triple AdvReac Redness of Verified 12/18/24 09:50 Antibiotic) Skin Sulfa (Sulfonamide AdvReac Nausea and Verified 12/18/24 09:50 Antibiotics) Vomiting Vital Signs Vital Signs - 24 hr 12/18/24 09:45 Temperature 97.8 F Pulse Rate 77 Respiratory Rate 12 Blood Pressure 121/66 Pulse Oximetry 100 Oxygen Delivery Room Air Exam Const: General: cooperative and healthy appearing Resp: Effort & Inspection: normal respiratory effort and able to speak in complete sentences Auscultation: clear to auscultation bilaterally Cardio: Rate: regular rate Rhythm: regular rhythm GI: Inspection: normal to inspection GI Palp: No No hepatosplenomegaly present Auscultation: normal bowel sounds Rectal Exam: deferred Skin: General skin exam: normal color Psych: Appearance: grossly normal Mental Status: mental status grossly normal Assessment and Plan Assessment and plan (1) Encounter for screening colonoscopy: Code(s): Z12.11 - Encounter for screening for malignant neoplasm of colon Status: Acute Assessment and Plan: The patient is deemed a good candidate for the procedure. Consent signed. Will proceed.
--- NOTE | 2024-12-18 10:55 | S_PTH ---
PATIENT: Paty Riggs LOC: [facility] U#:[id number] AGE/SX: 69/F ROOM: RE12/18/[address]: Thai Kahn MD : 1955 BED: DIS: 12/18/2024 SPEC #: [id number] RECD: 12/18/24 11:59 STATUS: JUAN REQ #: [id number] STORM: 12/18/24 10:[address]: Thai Kahn DEPT: [facility] Surgical RECD BY: Phyllis Carr ENTERED: 12/18/24 11:59 SP TYPE: Surgical OTHR DR: Jhoana Christianson, NURSERYPERSON-C Tissues: A - Colon Polypectomy Procedures: Hematoxylin and Eosin Stain Gross and Microscopic Level 4
[2024-12-18 11:01] VITALS: BP 71/33; PULSE 76; RESP 19; O2SAT 99
[2024-12-18 11:11] VITALS: BP 94/51; PULSE 76; RESP 20; O2SAT 99
[2024-12-18 11:21] VITALS: BP 99/51; PULSE 72; RESP 17; O2SAT 99
== END 2024-12-18 11:40 | disposition home or self-care (01) ==
PROVIDERS: PCP Nurse Practitioner; Referring Provider Nurse Practitioner; Visit Provider Internal Medicine Gastroenterology
PROC: 0DJD8ZZ Inspection of Lower Intestinal Tract, Via Natural or Artificial Opening Endoscopic (ICD-10-PCS; CPT 45378; principal; 2024-12-18 11:00)
DX: Z12.11 Encounter for screening for malignant neoplasm of colon (principal); D12.4 Benign neoplasm of descending colon; E11.9 Type 2 diabetes mellitus without complications
CPT/HCPCS: 45385; 82948; 88305; J2003; J2371; J2704; J7120

== ENCOUNTER 2025-04-06 08:07 | Outpatient (CLI) | payer OTHER, SELFPAY ==
--- NOTE | ~2025-04-06 | MM_ITS ---
EXAMINATION: screening [facility] BI w gabriella INDICATION: Asymptomatic, referred for screening mammogram. History of Left partial mastectomy 2016. COMPARISON: 09/13/2023 TECHNIQUE: Digital Breast Tomosynthesis CC, MLO views were obtained of Both breasts with computer-aided detection to assist in interpretation of the study. FINDINGS: There are scattered areas of fibroglandular density. Posttreatment changes in Left breast are unchanged. No new focal dominant mass, architectural distortion, or suspicious microcalcifications are identified. There are no features to suggest malignancy. IMPRESSION: Stable benign mammogram. No evidence of malignancy in the breast. BI-RADS 2, BENIGN Reviewed, dictated and finalized at location B. NTORY AND PRICING ASSOCIATE
--- OUTSIDE RECORDS SUMMARY | 2025-04-06 08:17 | XMS_ITS | Clinical Summary ---
Author Organization [facility] Address [address] [place] [address] Care Team Providers Care Data Processing Consultant Name Role Phone TerrellSamara Latesha PABLO Primary Care Provider [phone] Roxanne Rubio MD Unavailable [phone] Source Comments [facility],non-[facility] Affiliates and Associated Physician Practices is amultiple site organization consisting of ambulatory clinics and hospital sitesin [place], [place], [place] and [place]. This disclosure is being madepursuant to the Care Everywhere program and may not contain all information available regarding this patient. Last updated 18.[facility] Social History Tobacco Use Types Packs/Day Years [...] (1 of 2) 12/05/2007 MAMMOGRAM 05/12/2021 05/12/2019 DEPRESSION SCREENING 06/03/2024 COVID-19 VACCINE ( - 2023-2 5 season) 2025 INFLUENZA VACCINE (#1) 2025 03/25/2015 Respiratory Syncytial [...] on patient's age to complete this topic Insurance [facility] SELF PAY NO INSURANCE Member Subscriber Plan / Payer (Ef fective for All Dates) Name:Maribell Riggs Member ID:Not on file Relation to Subscriber:Not on file Name:MARIBELL RIGGS Subscriber ID:Not on file (Home) Address: [address] [place] [id number] Payer ID:Not on file Group ID:Not on file Type:Self Pay Address: [place], [place] Care Teams Data Processing Consultant Relationship Specialty Start Date End Date Samara TejadaDO PCP - General Family Medicine 02/26/20 Roxanne Rubio MD [address] [place] [address] [place] [id number] Surgical Oncologist General Surgery 02/26/20
--- OUTSIDE RECORDS SUMMARY | 2025-04-06 08:17 | XMS_ITS | Clinical Summary ---
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
--- OUTSIDE RECORDS SUMMARY | 2025-04-06 08:17 | XMS_ITS | Clinical Summary ---
Author Organization [facility] [place] Address [address] [place] [id number] Phone Care Team Providers Care Admissions Counselor Name Role Phone Samara Tejada Primary Care Provider [phone] Allergies Active Allergy Reactions Criticality Noted Date [...] mg by subcutaneous injection. 1 Active calcitonin, [place], (FORTICAL) 200 unit/actuation Conrad, Non-Aerosol Administer 1 Conrad in each nostril daily. 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 Rose Cerrato Surgeon: Dr. Roxanne Rubio Radiation oncologist: Dr. Yissel Ricardo Primary care physician: Dr. 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 Also lobular carcinoma in situ. TNM: Tmi N0 M0, stage I Stage: 0 [] I [x] II [] III [] IV ER: Negative ID: Negative [id number]: Positive Oncotype results if performed: Surgery: [x] Yes [] No Surgery date: 08/23 and 09/08/15 Surgical procedures/location/findings: 08/23 left lumpectomy. 09/08/15 left axillary sentinel lymph node biopsy. Lymph nodes removed: [x] Yes, 0/4 [] No Systemic therapy (chemotherapy): [] Yes [x] No Names of therapy used: Number of cycles and end date: Clinical trial: [] Yes [x] [place] of trial: Drugs given and date completed: [...] other tests as indicated on each visit DIRECTOR HAIR continue your yearly visit. If you are on tamoxifen you have a greater chance of developing uterine cancer. You should report any abnormal vaginal bleeding to your doctor. *Physical exam and other tests (Pap test) as indicated on each visit. Please continue to see your primary care physician/DIRECTOR HAIR for all general health care recommended for a female your age. Possible late and/or intermediate effects that someone with this type of [...] [] [facility] at the [facility] [x] Other (Specify): 1. Interested in weight loss and exercise. Will contact the [facility] for information on the [employer] program. Test Driller in cancer information center if interested in the future. ADDITIONAL RESOURCES Patients may have many questions and concerns after their cancer treatment ends. A list of local resources as provided below to assist you. [facility] cancer [facility]: [place] [employer] Society (ACS): www.acs.org National Cancer [place] (NCI): www.cancer.gov [place] Society of clinical oncology (ASCO): www.cancer.net K[employer]: www.Widgetbox.Orb Health [employer]est[employer]: www.NuLabel Radiation therapy: www.rtanswers.org Patient signature: DECORATOR LIGHTING FIXTURES signature: Date delivered on: 05/08/2016 60 minutes [...] on file Legal Sex Female 3:34 PM TIERCE FILLER Gender Identity Not on file Sexual Orientation Not on file Last Filed Vital Signs Vital Sign Reading Time Taken Comments Blood Pressure 120/60 06/13/2021 9:47 AM TIERCE FILLER Pulse 70 05/12/2019 1:50 PM TIERCE FILLER Temperature 36.7 C (98.1 F) 05/08/2016 11:13 AM TIERCE FILLER Respiratory Rate 16 05/08/2016 11:13 AM TIERCE FILLER Oxygen Saturation 93% 09/08/2015 11:50 AM CDT Inhaled Oxygen Concentration - - Weight 87.5 kg (193 lb) 06/13/2021 9:47 AM TIERCE FILLER Height 160 cm (5' 3) 06/13/2021 9:47 AM TIERCE FILLER Body Mass Index 34.19 06/13/2021 9:47 AM TIERCE FILLER Plan of Treatment Health Maintenance Due Date [...] OR WO CAD Routine 06/13/2021 9:21 AM TIERCE FILLER 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 RECOMMENDATIONS: Bilateral annual routine mammogram. LEFT BREAST OVERALL FINAL ASSESSMENT: BI-RADS CATEGORY 2 - Benign findings. RIGHT BREAST OVERALL FINAL ASSESSMENT: BI-RADS CATEGORY 1 - Negative. DICTATION LOCATION: [facility] 06/13/2021 9:55 AM TIERCE FILLER BILATERAL DIAGNOSTIC DIGITAL MAMMOGRAM WITH 3D TOMOSYNTHESIS [...] Advance Directives For more information, please contact: [phone] * Full Code (Latest Code Status on File) Date Activated Date Inactivated Comments 09/08/2015 7:53 AM 09/08/2015 4:30 PM * Full Code Date Activated Date Inactivated Comments 09/08/2015 7:24 AM 09/08/2015 7:53 AM * Full Code Date Activated Date Inactivated Comments 08/24/2015 12:25 PM 08/24/2015 4:22 PM * Full Code Date Activated Date Inactivated Comments 08/24/2015 10:42 AM 08/24/2015 12:25 PM Care Teams Admissions Counselor Relationship Specialty Start Date End Date Samara Tejada DO [address] [place] [address] [place] [phone] PCP - General Family Practice 08/16/15
== END 2025-04-06 08:08 | disposition home or self-care (01) ==
LOC: CHSIMG 08:10
PROVIDERS: PCP Nurse Practitioner; Visit Provider Nurse Practitioner
DX: Z12.31 Encounter for screening mammogram for malignant neoplasm of breast (principal)
CPT/HCPCS: 77063; 77067